=== PATIENT | male | born 1955 | race Caucasian/White ===

== ENCOUNTER 2019-01-08 15:31 | Inpatient (IN) | payer OTHER ==
[2019-01-08] MEDS: PIPER-TAZO 3.375 GM IV (PMX) 100 ML IVPB (16:41)
[2019-01-08] MEDS: morphine 4 MG/ML VIAL IV (16:41)
[2019-01-08 16:45] LABS: ADD MAN DIFF? NO
[2019-01-08 16:50] LABS: WHITE BLOOD COUNT 7.6 10^3/ul (4.8-10.8)
[2019-01-08 16:50] LABS: BASOPHILS % 0.5 % (0.0-2.0); EOSINOPHILS # 0.1 10^3/ul (0.0-0.5); EOSINOPHILS % 1.2 % (0.0-7.0); HEMATOCRIT 43.2 % (42.0-52.0); LYMPHOCYTES # 1.3 10^3/ul (0.8-2.9); MEAN CORPUSCULAR HGB CONC 32.4 g/dl (32.0-37.0); MEAN CORPUSCULAR VOLUME 89.4 fl (82.0-101.0); MEAN PLATELET VOLUME 11.6 fl (7.4-10.4); MONOCYTE # 0.6 10^3/ul (0.3-0.9); MONOCYTES % 7.6 % (0.0-11.0); NEUTROPHIL # 5.6 10^3/ul (1.6-7.5); NEUTROPHILS % 73.4 % (39.0-77.0); PLATELET COUNT 259 10^3/UL (140-415); RED BLOOD COUNT 4.83 10^6/ul (4.70-6.10); RED CELL DISTRIBUTION WIDTH 12.6 % (11.5-14.5)
[2019-01-08] MEDS: VANCOMYCIN 1 GM (PMX) 250 ML IVPB (17:08)
[2019-01-08 17:14] LABS: ALANINE AMINOTRANSFERASE 25 IU/L (13-69); ALBUMIN 4.2 g/dl (3.3-4.9); ALBUMIN/GLOBULIN RATIO 1.23; ALKALINE PHOSPHATASE 71 IU/L (42-121); ANION GAP 10 (5-13); ASPARTATE AMINO TRANSFERASE 22 IU/L (15-46); BILIRUBIN,INDIRECT 0.3 mg/dl (0-1.1); BILIRUBIN,TOTAL 0.3 mg/dl (0.2-1.3); BLOOD UREA NITROGEN 27 mg/dl (7-20); C-REACTIVE PROTEIN 1.1 mg/dl (0.0-0.9); CARBON DIOXIDE 26 mmol/L (21-31); CHLORIDE 103 mmol/L (97-110); CREATININE 0.92 mg/dl (0.61-1.24); Estimated GFR > 60 mL/min (>60); GLUCOSE 235 mg/dl (70-220); POTASSIUM 4.3 mmol/L (3.5-5.1); SODIUM 139 mmol/L (135-144); TOTAL PROTEIN 7.6 g/dl (6.1-8.1)
[2019-01-08 18:01] LABS: INR 0.84; PROTIME 11.6 Sec (11.9-14.9); PT RATIO 0.9
[2019-01-08 18:02] LABS: PARTIAL THROMBOPLASTIN TIME 33.1 Sec (23.0-35.0)
[2019-01-08 18:14] LABS: ERYTHROCYTE SEDIMENTATION RATE 15 mm/Hr (0-20)
[2019-01-08] MEDS ORDERED: DOCUSATE SODIUM 100 MG CAP PO (18:30)
[2019-01-08] MEDS ORDERED: ONDANSETRON 4 MG INJ IV ×2 (18:30→19:00)
[2019-01-08] MEDS ORDERED: VANCOMYCIN IV PER PHARMACY XX (18:30)
[2019-01-08] MEDS ORDERED: LORAZEPAM 2 MG INJ IV (18:30)
[2019-01-08] MEDS ORDERED: ACETAMINOPHEN 325 MG TAB PO ×2 (18:30→19:00)
[2019-01-08] MEDS ORDERED: NACL 0.9% 3 ML SYG IV (18:30)
[2019-01-08] MEDS ORDERED: ALBUTEROL/IPRATROPIUM (NEB) 3 ML AMP HHN (18:30)
[2019-01-08] MEDS ORDERED: NITROGLYCERIN (SL) 0.4 MG TAB SL (18:30)
[2019-01-08] MEDS ORDERED: MAGNESIUM HYDROXIDE 30ML CUP PO (18:30)
[2019-01-08] MEDS ORDERED: hydrALAzine 20 MG INJ IV (18:30)
[2019-01-08 19:32] LABS: FREE T4 (FREE THYROXINE) 1.16 ng/dl (0.78-2.44)
[2019-01-08] MEDS ORDERED: DEXTROSE 50% 50 ML SYRINGE IV ×2 (21:30)
[2019-01-08] MEDS ORDERED: GLUCOSE GEL 15 GRAM TUBE PO ×2 (21:30)
[2019-01-08] MEDS ORDERED: GLUCOSE GEL 15 GRAM TUBE BUCCAL (21:30)
[2019-01-08] MEDS ORDERED: GLUCAGON 1 MG INJ IM (21:30)
[2019-01-08 22:40] LABS: INR 0.85; PROTIME 11.7 Sec (11.9-14.9); PT RATIO 0.9
[2019-01-09] MEDS: morphine 2 MG INJ IV ×3 (00:45→20:51)
[2019-01-09] MEDS: PIPER-TAZO 3.375 GM IV (PMX) 100 ML IVPB ×3 (00:48→13:22)
[2019-01-09] MEDS: PREGABALIN 75 MG CAP PO ×4 (00:50→20:44)
[2019-01-09] MEDS: HEPARIN 5,000 UNIT/1 ML VIAL SC ×3 (00:50→20:46)
[2019-01-09] MEDS: SOD CHLORIDE 0.45% 1,000 ML IV ×3 (00:50→23:31)
[2019-01-09] MEDS: ATORVASTATIN 10 MG TAB PO ×2 (00:50→20:44)
[2019-01-09] MEDS: INSULIN ASPART [NOVOLOG] 3 ML PEN SC ×3 (01:00→08:44)
[2019-01-09] MEDS: ACCU-CHEK XX (01:01)
[2019-01-09] MEDS: VANCOMYCIN HCL 1.5 GM in SOD CHLORIDE 0.9% 250 ML IVPB ×2 (01:58→15:50)
[2019-01-09 05:40] LABS: ADD MAN DIFF? NO
[2019-01-09 05:48] LABS: BASOPHIL # 0.1 10^3/ul (0.0-0.1); BASOPHILS % 0.7 % (0.0-2.0); EOSINOPHILS # 0.1 10^3/ul (0.0-0.5); EOSINOPHILS % 1.5 % (0.0-7.0); HEMATOCRIT 39.6 % (42.0-52.0); HEMOGLOBIN 13.1 g/dl (14.0-18.0); LYMPHOCYTES # 1.7 10^3/ul (0.8-2.9); LYMPHOCYTES % 23.2 % (15.0-51.0); MEAN CORPUSCULAR HEMOGLOBIN 29.3 pg (29.0-33.0); MEAN CORPUSCULAR HGB CONC 33.1 g/dl (32.0-37.0); MEAN CORPUSCULAR VOLUME 88.6 fl (82.0-101.0); MEAN PLATELET VOLUME 11.5 fl (7.4-10.4); MONOCYTE # 0.7 10^3/ul (0.3-0.9); NEUTROPHIL # 4.6 10^3/ul (1.6-7.5); NEUTROPHILS % 64.3 % (39.0-77.0); PLATELET COUNT 253 10^3/UL (140-415); RED BLOOD COUNT 4.47 10^6/ul (4.70-6.10); RED CELL DISTRIBUTION WIDTH 12.4 % (11.5-14.5)
[2019-01-09 05:48] LABS: WHITE BLOOD COUNT 7.2 10^3/ul (4.8-10.8)
[2019-01-09] MEDS: LEVOTHYROXINE 25 MCG TAB PO (06:28)
[2019-01-09] MEDS: PANTOPRAZOLE (EC) 40 MG TAB PO (06:28)
[2019-01-09 06:45] LABS: ANION GAP 6 (5-13); BLOOD UREA NITROGEN 22 mg/dl (7-20); CALCIUM 9.1 mg/dl (8.4-10.2); CARBON DIOXIDE 26 mmol/L (21-31); CHLORIDE 107 mmol/L (97-110); CREATININE 0.81 mg/dl (0.61-1.24); Estimated GFR > 60 mL/min (>60); GLUCOSE 83 mg/dl (70-220); MAGNESIUM 1.9 mg/dl (1.7-2.5); PHOSPHORUS 2.8 mg/dl (2.5-4.9); POTASSIUM 3.9 mmol/L (3.5-5.1); SODIUM 139 mmol/L (135-144)
[2019-01-09 07:11] LABS: CHOL/HDL RATIO 2.8 RATIO; HDL CHOLESTEROL 41 mg/dl (30-78); LDL CHOLESTEROL,CALCULATED 63 mg/dl; TRIGLYCERIDES 53 mg/dl (0-149)
[2019-01-09 07:11] LABS: CHOLESTEROL 115 mg/dl (100-200)
[2019-01-09 07:31] LABS: HEMOGLOBIN A1C 6.9 % (0-5.9)
[2019-01-09] MEDS: COLLAGENASE 5 GM (UD JAR) TOP (08:31)
[2019-01-09] MEDS: LIDOCAINE 1% (MPF) 5 ML VIAL SC (11:05)
[2019-01-09] MEDS: Insulin NOVOLOG SS MILD Algorithm (SS with meals and bedtime) SC ×3 (13:00→20:46)
[2019-01-09] MEDS ORDERED: INSULIN ASPART [NOVOLOG] 3 ML PEN SC ×2 (13:00)
[2019-01-09] MEDS: CEFTRIAXONE 1 GM/50 ML (PMX) 50 ML IVPB (16:22)
[2019-01-10] MEDS: HYDROCODONE/APAP (5/325) TAB PO (00:43)
[2019-01-10] MEDS: SOD CHLORIDE 0.45% 1,000 ML IV ×2 (01:08→15:00)
[2019-01-10] MEDS: ACCU-CHEK XX (01:20)
[2019-01-10] MEDS: VANCOMYCIN HCL 1.5 GM in SOD CHLORIDE 0.9% 250 ML IVPB ×2 (01:20→13:49)
[2019-01-10 05:34] LABS: ADD MAN DIFF? NO
[2019-01-10 05:38] LABS: WHITE BLOOD COUNT 6.6 10^3/ul (4.8-10.8)
[2019-01-10 05:38] LABS: BASOPHIL # 0.1 10^3/ul (0.0-0.1); BASOPHILS % 0.9 % (0.0-2.0); EOSINOPHILS # 0.2 10^3/ul (0.0-0.5); EOSINOPHILS % 2.3 % (0.0-7.0); HEMATOCRIT 38.8 % (42.0-52.0); HEMOGLOBIN 12.9 g/dl (14.0-18.0); LYMPHOCYTES # 1.7 10^3/ul (0.8-2.9); LYMPHOCYTES % 25.9 % (15.0-51.0); MEAN CORPUSCULAR HEMOGLOBIN 29.6 pg (29.0-33.0); MEAN CORPUSCULAR HGB CONC 33.2 g/dl (32.0-37.0); MEAN PLATELET VOLUME 11.5 fl (7.4-10.4); MONOCYTE # 0.6 10^3/ul (0.3-0.9); MONOCYTES % 9.3 % (0.0-11.0); NEUTROPHILS % 61.3 % (39.0-77.0); PLATELET COUNT 253 10^3/UL (140-415); RED BLOOD COUNT 4.36 10^6/ul (4.70-6.10); RED CELL DISTRIBUTION WIDTH 12.7 % (11.5-14.5)
[2019-01-10 05:57] LABS: ANION GAP 6 (5-13); BLOOD UREA NITROGEN 16 mg/dl (7-20); CALCIUM 8.7 mg/dl (8.4-10.2); CARBON DIOXIDE 26 mmol/L (21-31); CHLORIDE 107 mmol/L (97-110); CREATININE 0.73 mg/dl (0.61-1.24); Estimated GFR > 60 mL/min (>60); GLUCOSE 192 mg/dl (70-220); SODIUM 139 mmol/L (135-144)
[2019-01-10] MEDS: LEVOTHYROXINE 25 MCG TAB PO (06:13)
[2019-01-10] MEDS: PANTOPRAZOLE (EC) 40 MG TAB PO (06:13)
[2019-01-10] MEDS: COLLAGENASE 5 GM (UD JAR) TOP ×2 (06:42→08:06)
[2019-01-10 07:46] LABS: ERYTHROCYTE SEDIMENTATION RATE 20 mm/Hr (0-20)
[2019-01-10] MEDS: PREGABALIN 75 MG CAP PO ×2 (08:00→13:49)
[2019-01-10] MEDS: HEPARIN 5,000 UNIT/1 ML VIAL SC (08:05)
[2019-01-10] MEDS: Insulin NOVOLOG SS MILD Algorithm (SS with meals and bedtime) SC ×3 (08:05→17:28)
[2019-01-10 12:54] LABS: VANCOMYCIN,TROUGH 13.3 ug/ml (10.0-20.0)
[2019-01-10] MEDS: CEFTRIAXONE 1 GM/50 ML (PMX) 50 ML IVPB (17:15)
== END 2019-01-10 18:30 | disposition home health service (06) | DRG 638 ==
LOC: E/R 15:31 → 2NE 22:40
DX: E11.621 Type 2 diabetes mellitus with foot ulcer (principal); M86.8X6 Other osteomyelitis, lower leg; R60.9 Edema, unspecified; Z79.82 Long term (current) use of aspirin; E03.9 Hypothyroidism, unspecified; E11.40 Type 2 diabetes mellitus with diabetic neuropathy, unspecified
CPT/HCPCS: 36415; 36569; 71045; 73620; 73718; 76937; 80048; 80053; 80061; 80202; 82962; 83036; 83735; 84100; 84439; 84443; 85025; 85610; 85651; 85730; 86140; 87070; 87081; 93926; 96365; 96366; 96375; 97162; 99285-25

== ENCOUNTER 2019-03-20 08:33 | Inpatient (IN) | payer OTHER ==
[2019-03-20 11:17] LABS: ADD MAN DIFF? NO
[2019-03-20 11:19] LABS: BASOPHILS % 0.3 % (0.0-2.0); EOSINOPHILS # 0.1 10^3/ul (0.0-0.5); EOSINOPHILS % 0.9 % (0.0-7.0); HEMATOCRIT 41.2 % (42.0-52.0); HEMOGLOBIN 13.5 g/dl (14.0-18.0); LYMPHOCYTES # 1.1 10^3/ul (0.8-2.9); LYMPHOCYTES % 11.9 % (15.0-51.0); MEAN CORPUSCULAR HEMOGLOBIN 28.8 pg (29.0-33.0); MEAN CORPUSCULAR HGB CONC 32.8 g/dl (32.0-37.0); MEAN PLATELET VOLUME 10.9 fl (7.4-10.4); MONOCYTE # 0.7 10^3/ul (0.3-0.9); MONOCYTES % 7.5 % (0.0-11.0); NEUTROPHIL # 7.2 10^3/ul (1.6-7.5); NEUTROPHILS % 79.2 % (39.0-77.0); PLATELET COUNT 226 10^3/UL (140-415); RED BLOOD COUNT 4.68 10^6/ul (4.70-6.10); RED CELL DISTRIBUTION WIDTH 12.7 % (11.5-14.5)
[2019-03-20 11:19] LABS: WHITE BLOOD COUNT 9.1 10^3/ul (4.8-10.8)
[2019-03-20] MEDS: morphine 4 MG/ML VIAL IV (11:19)
[2019-03-20] MEDS: CEFTRIAXONE 1 GM/50 ML (PMX) 50 ML IVPB (11:19)
[2019-03-20] MEDS: SOD CHLORIDE 0.9% 1,000 ML IV (11:19)
[2019-03-20] MEDS: ONDANSETRON 4 MG INJ IV (11:19)
[2019-03-20 11:40] LABS: ALANINE AMINOTRANSFERASE 21 IU/L (13-69); ALBUMIN 4.6 g/dl (3.3-4.9); ALBUMIN/GLOBULIN RATIO 1.53; ALKALINE PHOSPHATASE 66 IU/L (42-121); ANION GAP 10 (5-13); ASPARTATE AMINO TRANSFERASE 19 IU/L (15-46); BILIRUBIN,INDIRECT 0.4 mg/dl (0-1.1); BILIRUBIN,TOTAL 0.4 mg/dl (0.2-1.3); BLOOD UREA NITROGEN 23 mg/dl (7-20); CALCIUM 9.8 mg/dl (8.4-10.2); CARBON DIOXIDE 29 mmol/L (21-31); CHLORIDE 100 mmol/L (97-110); CREATININE 1.08 mg/dl (0.61-1.24); Estimated GFR > 60 mL/min (>60); GLUCOSE 109 mg/dl (70-220); POTASSIUM 4.7 mmol/L (3.5-5.1); SODIUM 139 mmol/L (135-144); TOTAL PROTEIN 7.6 g/dl (6.1-8.1)
[2019-03-20 11:44] LABS: C-REACTIVE PROTEIN 2.6 mg/dl (0.0-0.9)
[2019-03-20 12:30] LABS: ERYTHROCYTE SEDIMENTATION RATE 33 mm/Hr (0-20)
[2019-03-20] MEDS ORDERED: ACETAMINOPHEN 325 MG TAB PO (13:30)
[2019-03-20] MEDS ORDERED: DOCUSATE SODIUM 100 MG CAP PO (13:30)
[2019-03-20] MEDS: AMLODIPINE 5 MG TAB PO (13:30)
[2019-03-20] MEDS ORDERED: ONDANSETRON 4 MG INJ IV ×2 (13:30)
[2019-03-20] MEDS ORDERED: DEXTROSE 50% 50 ML SYRINGE IV ×2 (14:30)
[2019-03-20] MEDS ORDERED: GLUCOSE GEL 15 GRAM TUBE PO ×2 (14:30)
[2019-03-20] MEDS ORDERED: GLUCAGON 1 MG INJ IM (14:30)
[2019-03-20] MEDS ORDERED: GLUCOSE GEL 15 GRAM TUBE BUCCAL (14:30)
[2019-03-20 14:58] LABS: HEMOGLOBIN A1C 6.7 % (0-5.9)
[2019-03-20] MEDS ORDERED: VANCOMYCIN IV PER PHARMACY XX (15:30)
[2019-03-20] MEDS: VANCOMYCIN HCL 2 GM in SOD CHLORIDE 0.9% 500 ML IVPB (17:22)
[2019-03-20] MEDS: HYDROCODONE/APAP (5/325) TAB PO (17:22)
[2019-03-20] MEDS: INSULIN ASPART [NOVOLOG] 3 ML PEN SC ×3 (18:00→22:33)
[2019-03-20] MEDS ORDERED: NON-FORMULARY/PATIENT OWN MED (Pravastatin Sodium* 20 MG) PO (21:00)
[2019-03-20] MEDS: ATORVASTATIN 10 MG TAB PO (22:32)
[2019-03-20] MEDS: PREGABALIN 75 MG CAP PO (22:32)
[2019-03-20] MEDS: FAMOTIDINE 20 MG INJ IV (22:33)
[2019-03-20] MEDS: HEPARIN 5,000 UNIT/1 ML VIAL SC (22:48)
[2019-03-20] MEDS: INSULIN GLARGINE [LANTus] (100 UNITS/ML) SYG SC (22:49)
[2019-03-21] MEDS: morphine 2 MG INJ IV ×3 (01:19→11:58)
[2019-03-21] MEDS: ACCU-CHEK XX (02:00)
[2019-03-21 05:27] LABS: ADD MAN DIFF? NO
[2019-03-21] MEDS: VANCOMYCIN 1.25 GM/NS 250 ML 250 ML IVPB ×2 (05:28→17:00)
[2019-03-21 05:36] LABS: WHITE BLOOD COUNT 6.4 10^3/ul (4.8-10.8)
[2019-03-21 05:36] LABS: BASOPHIL # 0.1 10^3/ul (0.0-0.1); BASOPHILS % 0.9 % (0.0-2.0); EOSINOPHILS # 0.1 10^3/ul (0.0-0.5); EOSINOPHILS % 1.9 % (0.0-7.0); HEMATOCRIT 36.3 % (42.0-52.0); HEMOGLOBIN 12.1 g/dl (14.0-18.0); LYMPHOCYTES # 0.9 10^3/ul (0.8-2.9); LYMPHOCYTES % 14.1 % (15.0-51.0); MEAN CORPUSCULAR HEMOGLOBIN 29.4 pg (29.0-33.0); MEAN CORPUSCULAR HGB CONC 33.3 g/dl (32.0-37.0); MEAN CORPUSCULAR VOLUME 88.1 fl (82.0-101.0); MEAN PLATELET VOLUME 11.1 fl (7.4-10.4); MONOCYTE # 0.8 10^3/ul (0.3-0.9); MONOCYTES % 12.4 % (0.0-11.0); NEUTROPHIL # 4.5 10^3/ul (1.6-7.5); NEUTROPHILS % 70.5 % (39.0-77.0); PLATELET COUNT 197 10^3/UL (140-415); RED BLOOD COUNT 4.12 10^6/ul (4.70-6.10); RED CELL DISTRIBUTION WIDTH 12.7 % (11.5-14.5)
[2019-03-21 05:52] LABS: INR 0.95; PROTIME 12.8 Sec (11.9-14.9)
[2019-03-21 05:53] LABS: PARTIAL THROMBOPLASTIN TIME 31.9 Sec (23.0-35.0)
[2019-03-21 06:40] LABS: T3 UPTAKE 35.3 % (23.5-40.5); T4 (THYROXINE) 6.8 ug/dl (5.5-11.0)
[2019-03-21 06:41] LABS: ALANINE AMINOTRANSFERASE 26 IU/L (13-69); ALBUMIN 3.7 g/dl (3.3-4.9); ALBUMIN/GLOBULIN RATIO 1.42; ALKALINE PHOSPHATASE 58 IU/L (42-121); ANION GAP 9 (5-13); ASPARTATE AMINO TRANSFERASE 15 IU/L (15-46); BILIRUBIN,INDIRECT 0.6 mg/dl (0-1.1); BILIRUBIN,TOTAL 0.6 mg/dl (0.2-1.3); BLOOD UREA NITROGEN 22 mg/dl (7-20); CARBON DIOXIDE 29 mmol/L (21-31); CHLORIDE 103 mmol/L (97-110); CHOL/HDL RATIO 3.2 RATIO; CHOLESTEROL 118 mg/dl (100-200); Estimated GFR > 60 mL/min (>60); GLUCOSE 126 mg/dl (70-220); HDL CHOLESTEROL 36 mg/dl (30-78); LDL CHOLESTEROL,CALCULATED 68 mg/dl; MAGNESIUM 1.7 mg/dl (1.7-2.5); PHOSPHORUS 3.8 mg/dl (2.5-4.9); POTASSIUM 4.4 mmol/L (3.5-5.1); SODIUM 141 mmol/L (135-144); TOTAL PROTEIN 6.3 g/dl (6.1-8.1); TRIGLYCERIDES 68 mg/dl (0-149)
[2019-03-21] MEDS: LEVOTHYROXINE 25 MCG TAB PO (06:57)
[2019-03-21 07:51] LABS: HEMOGLOBIN A1C 6.6 % (0-5.9)
[2019-03-21] MEDS: INSULIN ASPART [NOVOLOG] 3 ML PEN SC ×7 (08:00→21:00)
[2019-03-21] MEDS: ASPIRIN (EC) 81 MG TAB PO (08:29)
[2019-03-21] MEDS: AMLODIPINE 5 MG TAB PO (08:29)
[2019-03-21] MEDS: PREGABALIN 75 MG CAP PO ×3 (08:29→21:24)
[2019-03-21] MEDS: FAMOTIDINE 20 MG INJ IV ×2 (08:34→21:24)
[2019-03-21] MEDS: HEPARIN 5,000 UNIT/1 ML VIAL SC ×2 (08:36→21:33)
[2019-03-21] MEDS: CEFTRIAXONE 1 GM/50 ML (PMX) 50 ML IVPB (16:25)
[2019-03-21] MEDS: POLYMYXIN/BACITRACIN 1L IRRIG IRR ×2 (18:11→18:48)
[2019-03-21] MEDS ORDERED: FENTAnyl 50 MCG/ML VIAL (18:30)
[2019-03-21] MEDS ORDERED: MIDAZOLAM 1 MG/ML 2 ML INJ (18:30)
[2019-03-21] MEDS: BUPIVACAINE 0.5% (SDV) 30 ML INJ (18:36)
[2019-03-21] MEDS ORDERED: PROPOFOL 20 ML (18:43)
[2019-03-21] MEDS: VANCOMYCIN 1 GM INJ (18:48)
[2019-03-21] MEDS ORDERED: METOCLOPRAMIDE 10 MG INJ (18:55)
[2019-03-21] MEDS ORDERED: ONDANSETRON 4 MG INJ (18:55)
[2019-03-21] MEDS ORDERED: EPHEDrine 25 MG/5 ML SYG IV (19:30)
[2019-03-21] MEDS ORDERED: LABETALOL HCL 20MG INJ IV (19:30)
[2019-03-21] MEDS ORDERED: ONDANSETRON 4 MG INJ IV (19:30)
[2019-03-21] MEDS ORDERED: HYDROmorphONE 1 MG/5 ML IV SYRINGE IV ×2 (19:30)
[2019-03-21] MEDS ORDERED: OXYCODONE/ACETAMINOPHEN (5/325) TAB PO (19:30)
[2019-03-21] MEDS ORDERED: FENTAnyl 50 MCG/ML VIAL IV ×2 (19:30)
[2019-03-21] MEDS: ATORVASTATIN 10 MG TAB PO (21:24)
[2019-03-21] MEDS: INSULIN GLARGINE [LANTus] (100 UNITS/ML) SYG SC (21:33)
[2019-03-22] MEDS: ACCU-CHEK XX (02:00)
[2019-03-22 05:00] LABS: VANCOMYCIN,TROUGH 6.4 ug/ml (10.0-20.0)
[2019-03-22] MEDS: VANCOMYCIN 1.25 GM/NS 250 ML 250 ML IVPB ×3 (05:37→20:22)
[2019-03-22] MEDS: LEVOTHYROXINE 25 MCG TAB PO (06:01)
[2019-03-22] MEDS: INSULIN ASPART [NOVOLOG] 3 ML PEN SC ×8 (08:00→20:28)
[2019-03-22] MEDS: AMLODIPINE 5 MG TAB PO (08:24)
[2019-03-22] MEDS: FAMOTIDINE 20 MG INJ IV ×2 (08:24→20:23)
[2019-03-22] MEDS: PREGABALIN 75 MG CAP PO ×3 (08:24→20:23)
[2019-03-22] MEDS: ASPIRIN (EC) 81 MG TAB PO (08:24)
[2019-03-22] MEDS: HEPARIN 5,000 UNIT/1 ML VIAL SC ×2 (08:28→20:28)
[2019-03-22] MEDS: HYDROCODONE/APAP (5/325) TAB PO ×2 (08:33→18:15)
[2019-03-22] MEDS: CEFTRIAXONE 1 GM/50 ML (PMX) 50 ML IVPB (15:34)
[2019-03-22] MEDS: ATORVASTATIN 10 MG TAB PO (20:23)
[2019-03-22] MEDS: INSULIN GLARGINE [LANTus] (100 UNITS/ML) SYG SC (20:26)
[2019-03-23] MEDS: ACCU-CHEK XX (01:46)
[2019-03-23 05:28] LABS: ADD MAN DIFF? NO
[2019-03-23 05:36] LABS: WHITE BLOOD COUNT 6.2 10^3/ul (4.8-10.8)
[2019-03-23 05:36] LABS: BASOPHIL # 0.1 10^3/ul (0.0-0.1); BASOPHILS % 0.8 % (0.0-2.0); EOSINOPHILS # 0.2 10^3/ul (0.0-0.5); EOSINOPHILS % 3.4 % (0.0-7.0); HEMATOCRIT 36.7 % (42.0-52.0); HEMOGLOBIN 11.8 g/dl (14.0-18.0); LYMPHOCYTES # 1.1 10^3/ul (0.8-2.9); LYMPHOCYTES % 17.4 % (15.0-51.0); MEAN CORPUSCULAR HEMOGLOBIN 28.2 pg (29.0-33.0); MEAN CORPUSCULAR HGB CONC 32.2 g/dl (32.0-37.0); MEAN CORPUSCULAR VOLUME 87.6 fl (82.0-101.0); MEAN PLATELET VOLUME 11.1 fl (7.4-10.4); MONOCYTES % 15.7 % (0.0-11.0); NEUTROPHIL # 3.8 10^3/ul (1.6-7.5); NEUTROPHILS % 62.4 % (39.0-77.0); PLATELET COUNT 218 10^3/UL (140-415); RED BLOOD COUNT 4.19 10^6/ul (4.70-6.10); RED CELL DISTRIBUTION WIDTH 12.6 % (11.5-14.5)
[2019-03-23 06:32] LABS: ANION GAP 8 (5-13); BLOOD UREA NITROGEN 18 mg/dl (7-20); CALCIUM 8.8 mg/dl (8.4-10.2); CARBON DIOXIDE 27 mmol/L (21-31); CHLORIDE 103 mmol/L (97-110); Estimated GFR > 60 mL/min (>60); GLUCOSE 131 mg/dl (70-220); POTASSIUM 3.9 mmol/L (3.5-5.1); SODIUM 138 mmol/L (135-144)
[2019-03-23 06:32] LABS: VANCOMYCIN,TROUGH 16.7 ug/ml (10.0-20.0)
[2019-03-23] MEDS: LEVOTHYROXINE 25 MCG TAB PO (07:01)
[2019-03-23] MEDS: INSULIN ASPART [NOVOLOG] 3 ML PEN SC ×6 (07:57→21:00)
[2019-03-23] MEDS: PREGABALIN 75 MG CAP PO ×3 (08:01→20:56)
[2019-03-23] MEDS: ASPIRIN (EC) 81 MG TAB PO (08:01)
[2019-03-23] MEDS: FAMOTIDINE 20 MG INJ IV ×2 (08:01→20:56)
[2019-03-23] MEDS: HEPARIN 5,000 UNIT/1 ML VIAL SC ×2 (08:05→21:04)
[2019-03-23] MEDS: HYDROCODONE/APAP (5/325) TAB PO (08:10)
[2019-03-23] MEDS: AMLODIPINE 5 MG TAB PO (08:10)
[2019-03-23] MEDS: VANCOMYCIN 1.25 GM/NS 250 ML 250 ML IVPB ×3 (08:11→20:58)
[2019-03-23] MEDS: NITROGLYCERIN 0.2 MG/HR PATCH TRANSDERM (09:00)
[2019-03-23] MEDS ORDERED: NITROGLYCERIN 0.4 MG/HR PATCH TRANSDERM (09:00)
[2019-03-23] MEDS: ACETAMINOPHEN 325 MG TAB PO (14:29)
[2019-03-23] MEDS: CEFTRIAXONE 1 GM/50 ML (PMX) 50 ML IVPB (16:00)
[2019-03-23] MEDS: ATORVASTATIN 10 MG TAB PO (20:56)
[2019-03-23] MEDS: INSULIN GLARGINE [LANTus] (100 UNITS/ML) SYG SC (22:28)
[2019-03-24] MEDS: ACCU-CHEK XX (02:00)
[2019-03-24] MEDS: VANCOMYCIN 1.25 GM/NS 250 ML 250 ML IVPB ×2 (05:20→13:44)
[2019-03-24 06:19] LABS: ADD MAN DIFF? NO
[2019-03-24 06:25] LABS: HEMATOCRIT 39.6 % (42.0-52.0); HEMOGLOBIN 12.9 g/dl (14.0-18.0); LYMPHOCYTES % 17.4 % (15.0-51.0); MEAN CORPUSCULAR HEMOGLOBIN 28.9 pg (29.0-33.0); MEAN CORPUSCULAR HGB CONC 32.6 g/dl (32.0-37.0); MEAN CORPUSCULAR VOLUME 88.8 fl (82.0-101.0); MEAN PLATELET VOLUME 11.1 fl (7.4-10.4); MONOCYTES % 12.5 % (0.0-11.0); NEUTROPHILS % 66.9 % (39.0-77.0); PLATELET COUNT 260 10^3/UL (140-415); RED BLOOD COUNT 4.46 10^6/ul (4.70-6.10); RED CELL DISTRIBUTION WIDTH 12.5 % (11.5-14.5)
[2019-03-24 06:25] LABS: WHITE BLOOD COUNT 6.8 10^3/ul (4.8-10.8)
[2019-03-24 06:26] LABS: BASOPHIL # 0.1 10^3/ul (0.0-0.1); BASOPHILS % 0.7 % (0.0-2.0); EOSINOPHILS # 0.2 10^3/ul (0.0-0.5); EOSINOPHILS % 2.4 % (0.0-7.0); LYMPHOCYTES # 1.2 10^3/ul (0.8-2.9); MONOCYTE # 0.9 10^3/ul (0.3-0.9); NEUTROPHIL # 4.5 10^3/ul (1.6-7.5)
[2019-03-24] MEDS: LEVOTHYROXINE 25 MCG TAB PO (06:39)
[2019-03-24 07:02] LABS: ANION GAP 11 (5-13); BLOOD UREA NITROGEN 18 mg/dl (7-20); CARBON DIOXIDE 26 mmol/L (21-31); CHLORIDE 101 mmol/L (97-110); CREATININE 1.12 mg/dl (0.61-1.24); Estimated GFR > 60 mL/min (>60); GLUCOSE 191 mg/dl (70-220); SODIUM 138 mmol/L (135-144)
[2019-03-24] MEDS: ASPIRIN (EC) 81 MG TAB PO (08:18)
[2019-03-24] MEDS: PREGABALIN 75 MG CAP PO ×3 (08:18→20:20)
[2019-03-24] MEDS: FAMOTIDINE 20 MG INJ IV ×2 (08:18→20:20)
[2019-03-24] MEDS: AMLODIPINE 5 MG TAB PO (08:18)
[2019-03-24] MEDS: INSULIN ASPART [NOVOLOG] 3 ML PEN SC ×7 (08:22→20:56)
[2019-03-24] MEDS: HEPARIN 5,000 UNIT/1 ML VIAL SC ×2 (08:23→20:58)
[2019-03-24] MEDS: NITROGLYCERIN 0.2 MG/HR PATCH TRANSDERM (10:26)
[2019-03-24 12:47] LABS: BLOOD UREA NITROGEN 16 mg/dl (7-20)
[2019-03-24 12:47] LABS: CREATININE 1.01 mg/dl (0.61-1.24)
[2019-03-24 12:51] LABS: VANCOMYCIN,TROUGH 17.3 ug/ml (10.0-20.0)
[2019-03-24] MEDS: ATORVASTATIN 10 MG TAB PO (20:20)
[2019-03-24] MEDS: INSULIN GLARGINE [LANTus] (100 UNITS/ML) SYG SC (20:22)
[2019-03-24] MEDS: CEFAZOLIN 2 GM/50 ML (PMX) 50 ML IVPB (22:13)
[2019-03-25] MEDS: ACCU-CHEK XX (01:25)
[2019-03-25 05:58] LABS: ADD MAN DIFF? NO
[2019-03-25] MEDS: CEFAZOLIN 2 GM/50 ML (PMX) 50 ML IVPB ×3 (06:03→21:32)
[2019-03-25] MEDS: LEVOTHYROXINE 25 MCG TAB PO (06:03)
[2019-03-25 06:09] LABS: WHITE BLOOD COUNT 7.1 10^3/ul (4.8-10.8)
[2019-03-25 06:09] LABS: BASOPHIL # 0.1 10^3/ul (0.0-0.1); EOSINOPHILS # 0.3 10^3/ul (0.0-0.5); EOSINOPHILS % 3.5 % (0.0-7.0); HEMATOCRIT 38.8 % (42.0-52.0); HEMOGLOBIN 12.9 g/dl (14.0-18.0); LYMPHOCYTES # 1.3 10^3/ul (0.8-2.9); LYMPHOCYTES % 18.6 % (15.0-51.0); MEAN CORPUSCULAR HEMOGLOBIN 28.9 pg (29.0-33.0); MEAN CORPUSCULAR HGB CONC 33.2 g/dl (32.0-37.0); MONOCYTE # 0.9 10^3/ul (0.3-0.9); MONOCYTES % 12.2 % (0.0-11.0); NEUTROPHIL # 4.6 10^3/ul (1.6-7.5); NEUTROPHILS % 64.4 % (39.0-77.0); PLATELET COUNT 263 10^3/UL (140-415); RED BLOOD COUNT 4.46 10^6/ul (4.70-6.10); RED CELL DISTRIBUTION WIDTH 12.4 % (11.5-14.5)
[2019-03-25 06:42] LABS: ANION GAP 7 (5-13); BLOOD UREA NITROGEN 20 mg/dl (7-20); CALCIUM 9.1 mg/dl (8.4-10.2); CARBON DIOXIDE 28 mmol/L (21-31); CHLORIDE 105 mmol/L (97-110); GLUCOSE 163 mg/dl (70-220); POTASSIUM 4.4 mmol/L (3.5-5.1); SODIUM 140 mmol/L (135-144)
[2019-03-25 06:58] LABS: CREATININE 1.06 mg/dl (0.61-1.24); Estimated GFR > 60 mL/min (>60)
[2019-03-25] MEDS: INSULIN ASPART [NOVOLOG] 3 ML PEN SC ×7 (08:00→20:31)
[2019-03-25] MEDS: AMLODIPINE 5 MG TAB PO (08:16)
[2019-03-25] MEDS: PREGABALIN 75 MG CAP PO ×3 (08:16→20:28)
[2019-03-25] MEDS: ASPIRIN (EC) 81 MG TAB PO (08:16)
[2019-03-25] MEDS: HEPARIN 5,000 UNIT/1 ML VIAL SC ×2 (08:17→20:32)
[2019-03-25] MEDS: FAMOTIDINE 20 MG INJ IV (08:23)
[2019-03-25] MEDS ORDERED: MIDAZOLAM 1 MG/ML 2 ML INJ (08:36)
[2019-03-25] MEDS ORDERED: FENTAnyl 50 MCG/ML VIAL (08:36)
[2019-03-25] MEDS ORDERED: LIDOCAINE 1% (MDV) 20 ML INJ (08:36)
[2019-03-25] MEDS ORDERED: HEPARIN 1000 UNITS/NS (A-LINE) 1,000 ML (08:36)
[2019-03-25] MEDS ORDERED: IODIXANOL LOCM 100 ML BTL (09:41)
[2019-03-25] MEDS ORDERED: SOD CHLORIDE 0.9% 500 ML (09:41)
[2019-03-25] MEDS: SOD CHLORIDE 0.9% 1,000 ML IV (10:22)
[2019-03-25] MEDS: NITROGLYCERIN 0.2 MG/HR PATCH TRANSDERM (10:50)
[2019-03-25] MEDS: FAMOTIDINE 20 MG TAB PO (20:28)
[2019-03-25] MEDS: ATORVASTATIN 10 MG TAB PO (20:28)
[2019-03-25] MEDS: INSULIN GLARGINE [LANTus] (100 UNITS/ML) SYG SC (20:32)
[2019-03-26] MEDS: ACETAMINOPHEN 325 MG TAB PO (01:12)
[2019-03-26] MEDS: ACCU-CHEK XX (02:00)
[2019-03-26 05:39] LABS: ADD MAN DIFF? NO
[2019-03-26 05:44] LABS: WHITE BLOOD COUNT 6.6 10^3/ul (4.8-10.8)
[2019-03-26 05:44] LABS: BASOPHIL # 0.1 10^3/ul (0.0-0.1); BASOPHILS % 0.9 % (0.0-2.0); EOSINOPHILS # 0.3 10^3/ul (0.0-0.5); EOSINOPHILS % 4.1 % (0.0-7.0); HEMATOCRIT 35.3 % (42.0-52.0); HEMOGLOBIN 11.7 g/dl (14.0-18.0); LYMPHOCYTES # 1.5 10^3/ul (0.8-2.9); LYMPHOCYTES % 22.7 % (15.0-51.0); MEAN CORPUSCULAR HEMOGLOBIN 29.1 pg (29.0-33.0); MEAN CORPUSCULAR HGB CONC 33.1 g/dl (32.0-37.0); MEAN CORPUSCULAR VOLUME 87.8 fl (82.0-101.0); MEAN PLATELET VOLUME 10.7 fl (7.4-10.4); MONOCYTE # 0.7 10^3/ul (0.3-0.9); PLATELET COUNT 247 10^3/UL (140-415); RED BLOOD COUNT 4.02 10^6/ul (4.70-6.10); RED CELL DISTRIBUTION WIDTH 12.5 % (11.5-14.5)
[2019-03-26] MEDS: LEVOTHYROXINE 25 MCG TAB PO (06:07)
[2019-03-26] MEDS: CEFAZOLIN 2 GM/50 ML (PMX) 50 ML IVPB ×3 (06:07→22:19)
[2019-03-26 06:12] LABS: MAGNESIUM 1.9 mg/dl (1.7-2.5)
[2019-03-26 06:12] LABS: PHOSPHORUS 4.1 mg/dl (2.5-4.9)
[2019-03-26 06:14] LABS: ANION GAP 6 (5-13); BLOOD UREA NITROGEN 23 mg/dl (7-20); CALCIUM 8.7 mg/dl (8.4-10.2); CARBON DIOXIDE 28 mmol/L (21-31); CHLORIDE 105 mmol/L (97-110); Estimated GFR > 60 mL/min (>60); GLUCOSE 151 mg/dl (70-220); POTASSIUM 3.9 mmol/L (3.5-5.1); SODIUM 139 mmol/L (135-144)
[2019-03-26] MEDS: INSULIN ASPART [NOVOLOG] 3 ML PEN SC ×7 (08:00→21:00)
[2019-03-26] MEDS: FAMOTIDINE 20 MG TAB PO ×2 (08:31→20:20)
[2019-03-26] MEDS: ASPIRIN (EC) 81 MG TAB PO (08:31)
[2019-03-26] MEDS: AMLODIPINE 5 MG TAB PO (08:31)
[2019-03-26] MEDS: PREGABALIN 75 MG CAP PO ×3 (08:31→20:19)
[2019-03-26] MEDS: HEPARIN 5,000 UNIT/1 ML VIAL SC ×2 (08:37→20:22)
[2019-03-26] MEDS: NITROGLYCERIN 0.2 MG/HR PATCH TRANSDERM (09:00)
[2019-03-26] MEDS: HYDROCODONE/APAP (5/325) TAB PO (10:00)
[2019-03-26] MEDS: NACL 0.9% 3 ML SYG IV (17:39)
[2019-03-26] MEDS: ATORVASTATIN 10 MG TAB PO (20:19)
[2019-03-26] MEDS: INSULIN GLARGINE [LANTus] (100 UNITS/ML) SYG SC (20:22)
[2019-03-27] MEDS: ACCU-CHEK XX (01:48)
[2019-03-27] MEDS: LEVOTHYROXINE 25 MCG TAB PO (06:17)
[2019-03-27] MEDS: CEFAZOLIN 2 GM/50 ML (PMX) 50 ML IVPB ×3 (06:17→22:13)
[2019-03-27 07:20] LABS: ADD MAN DIFF? NO
[2019-03-27 07:24] LABS: WHITE BLOOD COUNT 5.9 10^3/ul (4.8-10.8)
[2019-03-27 07:24] LABS: BASOPHIL # 0.1 10^3/ul (0.0-0.1); EOSINOPHILS # 0.3 10^3/ul (0.0-0.5); EOSINOPHILS % 4.6 % (0.0-7.0); HEMATOCRIT 37.7 % (42.0-52.0); HEMOGLOBIN 12.3 g/dl (14.0-18.0); LYMPHOCYTES # 1.3 10^3/ul (0.8-2.9); LYMPHOCYTES % 21.9 % (15.0-51.0); MEAN CORPUSCULAR HEMOGLOBIN 28.9 pg (29.0-33.0); MEAN CORPUSCULAR HGB CONC 32.6 g/dl (32.0-37.0); MEAN CORPUSCULAR VOLUME 88.5 fl (82.0-101.0); MEAN PLATELET VOLUME 10.8 fl (7.4-10.4); MONOCYTE # 0.5 10^3/ul (0.3-0.9); MONOCYTES % 8.5 % (0.0-11.0); NEUTROPHIL # 3.8 10^3/ul (1.6-7.5); NEUTROPHILS % 63.8 % (39.0-77.0); PLATELET COUNT 270 10^3/UL (140-415); RED BLOOD COUNT 4.26 10^6/ul (4.70-6.10); RED CELL DISTRIBUTION WIDTH 12.7 % (11.5-14.5)
[2019-03-27 07:53] LABS: ANION GAP 5 (5-13); BLOOD UREA NITROGEN 22 mg/dl (7-20); CALCIUM 9.2 mg/dl (8.4-10.2); CARBON DIOXIDE 30 mmol/L (21-31); CHLORIDE 104 mmol/L (97-110); Estimated GFR > 60 mL/min (>60); GLUCOSE 141 mg/dl (70-220); POTASSIUM 4.2 mmol/L (3.5-5.1); SODIUM 139 mmol/L (135-144)
[2019-03-27 07:58] LABS: MAGNESIUM 1.9 mg/dl (1.7-2.5)
[2019-03-27 07:58] LABS: PHOSPHORUS 3.6 mg/dl (2.5-4.9)
[2019-03-27] MEDS: INSULIN ASPART [NOVOLOG] 3 ML PEN SC ×7 (08:00→21:00)
[2019-03-27] MEDS: ASPIRIN (EC) 81 MG TAB PO (08:55)
[2019-03-27] MEDS: PREGABALIN 75 MG CAP PO ×3 (08:55→21:31)
[2019-03-27] MEDS: FAMOTIDINE 20 MG TAB PO ×2 (08:55→21:31)
[2019-03-27] MEDS: AMLODIPINE 5 MG TAB PO (08:56)
[2019-03-27] MEDS: HEPARIN 5,000 UNIT/1 ML VIAL SC ×2 (09:09→21:36)
[2019-03-27] MEDS: HYDROCODONE/APAP (5/325) TAB PO (14:57)
[2019-03-27] MEDS ORDERED: LOSARTAN 25 MG TAB PO (17:00)
[2019-03-27] MEDS: LOSARTAN 50 MG TAB PO (17:59)
[2019-03-27] MEDS: ATORVASTATIN 40 MG TAB PO (21:31)
[2019-03-27] MEDS: INSULIN GLARGINE [LANTus] (100 UNITS/ML) SYG SC (21:36)
[2019-03-28] MEDS: ACCU-CHEK XX (01:57)
[2019-03-28 06:12] LABS: ADD MAN DIFF? NO
[2019-03-28] MEDS: LEVOTHYROXINE 25 MCG TAB PO (06:16)
[2019-03-28] MEDS: CEFAZOLIN 2 GM/50 ML (PMX) 50 ML IVPB ×3 (06:17→21:34)
[2019-03-28 06:19] LABS: BASOPHIL # 0.1 10^3/ul (0.0-0.1); BASOPHILS % 1.1 % (0.0-2.0); EOSINOPHILS # 0.2 10^3/ul (0.0-0.5); EOSINOPHILS % 4.2 % (0.0-7.0); HEMATOCRIT 35.5 % (42.0-52.0); HEMOGLOBIN 11.6 g/dl (14.0-18.0); LYMPHOCYTES # 1.5 10^3/ul (0.8-2.9); LYMPHOCYTES % 25.6 % (15.0-51.0); MEAN CORPUSCULAR HEMOGLOBIN 28.5 pg (29.0-33.0); MEAN CORPUSCULAR HGB CONC 32.7 g/dl (32.0-37.0); MEAN CORPUSCULAR VOLUME 87.2 fl (82.0-101.0); MEAN PLATELET VOLUME 10.7 fl (7.4-10.4); MONOCYTE # 0.6 10^3/ul (0.3-0.9); MONOCYTES % 10.5 % (0.0-11.0); NEUTROPHIL # 3.3 10^3/ul (1.6-7.5); NEUTROPHILS % 58.2 % (39.0-77.0); PLATELET COUNT 276 10^3/UL (140-415); RED BLOOD COUNT 4.07 10^6/ul (4.70-6.10); RED CELL DISTRIBUTION WIDTH 12.8 % (11.5-14.5)
[2019-03-28 06:19] LABS: WHITE BLOOD COUNT 5.7 10^3/ul (4.8-10.8)
[2019-03-28 06:39] LABS: ANION GAP 6 (5-13); BLOOD UREA NITROGEN 21 mg/dl (7-20); CALCIUM 9.4 mg/dl (8.4-10.2); CARBON DIOXIDE 31 mmol/L (21-31); CHLORIDE 102 mmol/L (97-110); CREATININE 0.99 mg/dl (0.61-1.24); Estimated GFR > 60 mL/min (>60); GLUCOSE 135 mg/dl (70-220); POTASSIUM 4.2 mmol/L (3.5-5.1); SODIUM 139 mmol/L (135-144)
[2019-03-28 06:45] LABS: MAGNESIUM 1.9 mg/dl (1.7-2.5)
[2019-03-28 06:45] LABS: PHOSPHORUS 4.1 mg/dl (2.5-4.9)
[2019-03-28] MEDS: INSULIN ASPART [NOVOLOG] 3 ML PEN SC ×7 (08:00→20:41)
[2019-03-28] MEDS: LOSARTAN 50 MG TAB PO (08:44)
[2019-03-28] MEDS: FAMOTIDINE 20 MG TAB PO ×2 (08:44→20:39)
[2019-03-28] MEDS: PREGABALIN 75 MG CAP PO ×3 (08:44→20:38)
[2019-03-28] MEDS: ASPIRIN (EC) 81 MG TAB PO (08:44)
[2019-03-28] MEDS: HEPARIN 5,000 UNIT/1 ML VIAL SC ×2 (08:46→20:42)
[2019-03-28] MEDS: ATORVASTATIN 40 MG TAB PO (20:39)
[2019-03-28] MEDS: INSULIN GLARGINE [LANTus] (100 UNITS/ML) SYG SC (20:42)
[2019-03-29] MEDS: ACCU-CHEK XX (01:37)
[2019-03-29] MEDS: CEFAZOLIN 2 GM/50 ML (PMX) 50 ML IVPB ×3 (05:35→21:14)
[2019-03-29] MEDS: morphine 2 MG INJ IV (05:35)
[2019-03-29] MEDS: LEVOTHYROXINE 25 MCG TAB PO (06:10)
[2019-03-29] MEDS: INSULIN ASPART [NOVOLOG] 3 ML PEN SC ×7 (08:00→21:00)
[2019-03-29] MEDS: LOSARTAN 50 MG TAB PO (08:16)
[2019-03-29] MEDS: HEPARIN 5,000 UNIT/1 ML VIAL SC ×2 (08:16→21:13)
[2019-03-29] MEDS: FAMOTIDINE 20 MG TAB PO ×2 (08:17→21:11)
[2019-03-29] MEDS: PREGABALIN 75 MG CAP PO ×3 (08:17→21:11)
[2019-03-29] MEDS: ASPIRIN (EC) 81 MG TAB PO (08:17)
[2019-03-29] MEDS: ATORVASTATIN 40 MG TAB PO (21:11)
[2019-03-29] MEDS: INSULIN GLARGINE [LANTus] (100 UNITS/ML) SYG SC (21:14)
[2019-03-30] MEDS: ACCU-CHEK XX (01:06)
[2019-03-30] MEDS: LEVOTHYROXINE 25 MCG TAB PO (06:05)
[2019-03-30] MEDS: CEFAZOLIN 2 GM/50 ML (PMX) 50 ML IVPB ×3 (06:05→22:19)
[2019-03-30] MEDS: PREGABALIN 75 MG CAP PO ×3 (08:10→20:53)
[2019-03-30] MEDS: ASPIRIN (EC) 81 MG TAB PO (08:10)
[2019-03-30] MEDS: FAMOTIDINE 20 MG TAB PO ×2 (08:10→20:53)
[2019-03-30] MEDS: LOSARTAN 50 MG TAB PO (08:11)
[2019-03-30] MEDS: INSULIN ASPART [NOVOLOG] 3 ML PEN SC ×7 (08:15→20:57)
[2019-03-30] MEDS: HEPARIN 5,000 UNIT/1 ML VIAL SC ×2 (08:16→20:56)
[2019-03-30] MEDS ORDERED: LIDOCAINE 1% (MPF) 5 ML VIAL SC (13:00)
[2019-03-30] MEDS: ATORVASTATIN 40 MG TAB PO (20:53)
[2019-03-30] MEDS: INSULIN GLARGINE [LANTus] (100 UNITS/ML) SYG SC (20:57)
[2019-03-31] MEDS: ACCU-CHEK XX (02:00)
[2019-03-31 05:59] LABS: ADD MAN DIFF? NO
[2019-03-31 06:08] LABS: BASOPHIL # 0.1 10^3/ul (0.0-0.1); EOSINOPHILS # 0.2 10^3/ul (0.0-0.5); EOSINOPHILS % 3.7 % (0.0-7.0); HEMATOCRIT 37.3 % (42.0-52.0); HEMOGLOBIN 12.2 g/dl (14.0-18.0); LYMPHOCYTES # 1.6 10^3/ul (0.8-2.9); LYMPHOCYTES % 27.2 % (15.0-51.0); MEAN CORPUSCULAR HEMOGLOBIN 29.3 pg (29.0-33.0); MEAN CORPUSCULAR HGB CONC 32.7 g/dl (32.0-37.0); MEAN CORPUSCULAR VOLUME 89.4 fl (82.0-101.0); MEAN PLATELET VOLUME 10.9 fl (7.4-10.4); MONOCYTE # 0.7 10^3/ul (0.3-0.9); MONOCYTES % 11.1 % (0.0-11.0); NEUTROPHIL # 3.4 10^3/ul (1.6-7.5); NEUTROPHILS % 56.8 % (39.0-77.0); PLATELET COUNT 297 10^3/UL (140-415); RED BLOOD COUNT 4.17 10^6/ul (4.70-6.10); RED CELL DISTRIBUTION WIDTH 12.8 % (11.5-14.5)
[2019-03-31] MEDS: LEVOTHYROXINE 25 MCG TAB PO (06:08)
[2019-03-31] MEDS: CEFAZOLIN 2 GM/50 ML (PMX) 50 ML IVPB ×2 (06:08→14:38)
[2019-03-31 06:26] LABS: IRON 78 ug/dl (35-150)
[2019-03-31 06:30] LABS: MAGNESIUM 1.9 mg/dl (1.7-2.5)
[2019-03-31 06:30] LABS: ALANINE AMINOTRANSFERASE 19 IU/L (13-69); ALBUMIN 3.5 g/dl (3.3-4.9); ALBUMIN/GLOBULIN RATIO 1.09; ALKALINE PHOSPHATASE 56 IU/L (42-121); ANION GAP 4 (5-13); ASPARTATE AMINO TRANSFERASE 23 IU/L (15-46); BILIRUBIN,INDIRECT 0.3 mg/dl (0-1.1); BILIRUBIN,TOTAL 0.3 mg/dl (0.2-1.3); BLOOD UREA NITROGEN 26 mg/dl (7-20); CALCIUM 9.3 mg/dl (8.4-10.2); CARBON DIOXIDE 30 mmol/L (21-31); CHLORIDE 103 mmol/L (97-110); CREATININE 0.98 mg/dl (0.61-1.24); Estimated GFR > 60 mL/min (>60); GLUCOSE 154 mg/dl (70-220); POTASSIUM 4.5 mmol/L (3.5-5.1); SODIUM 137 mmol/L (135-144); TOTAL PROTEIN 6.7 g/dl (6.1-8.1)
[2019-03-31 06:35] LABS: % IRON SATURATION 29 % SAT (22-52); TOTAL IRON BINDING CAPACITY 271 ug/dl (241-421)
[2019-03-31 07:00] LABS: HEPATITIS B SURFACE ANTIGEN NEGATIVE (NEGATIVE)
[2019-03-31 07:17] LABS: HEPATITIS C VIRAL ANTIBODY NEGATIVE (NEGATIVE)
[2019-03-31] MEDS: INSULIN ASPART [NOVOLOG] 3 ML PEN SC ×4 (08:00→13:33)
[2019-03-31] MEDS: PREGABALIN 75 MG CAP PO ×2 (08:09→13:28)
[2019-03-31] MEDS: ASPIRIN (EC) 81 MG TAB PO (08:09)
[2019-03-31] MEDS: FAMOTIDINE 20 MG TAB PO (08:09)
[2019-03-31] MEDS: LOSARTAN 50 MG TAB PO (08:10)
[2019-03-31] MEDS: HEPARIN 5,000 UNIT/1 ML VIAL SC (08:16)
[2019-03-31 08:36] LABS: ERYTHROCYTE SEDIMENTATION RATE 25 mm/Hr (0-20)
== END 2019-03-31 16:20 | disposition home health service (06) | DRG 623 ==
LOC: E/R 08:33 → 2NE 13:15
PROC: 0JBR0ZZ Excision of Left Foot Subcutaneous Tissue and Fascia, Open Approach (ICD-10-PCS; principal; 2019-03-21 18:00)
PROC: 0HRNXK3 Replacement of Left Foot Skin with Nonautologous Tissue Substitute, Full Thickness, External Approach (ICD-10-PCS; 2019-03-21 18:00)
PROC: 0QBR0ZZ Excision of Left Toe Phalanx, Open Approach (ICD-10-PCS; 2019-03-21 18:00)
PROC: B40D1ZZ Plain Radiography of Aorta and Bilateral Lower Extremity Arteries using Low Osmolar Contrast (ICD-10-PCS; 2019-03-21 18:22)
PROC: 02HV33Z Insertion of Infusion Device into Superior Vena Cava, Percutaneous Approach (ICD-10-PCS; 2019-03-21 18:22)
DX: E11.69 Type 2 diabetes mellitus with other specified complication (principal); M86.9 Osteomyelitis, unspecified; L03.116 Cellulitis of left lower limb; M86.172 Other acute osteomyelitis, left ankle and foot; M86.672 Other chronic osteomyelitis, left ankle and foot; T81.31XA Disruption of external operation (surgical) wound, not elsewhere classified, initial encounter; I96 Gangrene, not elsewhere classified; E11.51 Type 2 diabetes mellitus with diabetic peripheral angiopathy without gangrene; E11.621 Type 2 diabetes mellitus with foot ulcer; L97.529 Non-pressure chronic ulcer of other part of left foot with unspecified severity; I10 Essential (primary) hypertension; I70.245 Atherosclerosis of native arteries of left leg with ulceration of other part of foot; M20.42 Other hammer toe(s) (acquired), left foot; E11.42 Type 2 diabetes mellitus with diabetic polyneuropathy; B95.61 Methicillin susceptible Staphylococcus aureus infection as the cause of diseases classified elsewhere; L08.9 Local infection of the skin and subcutaneous tissue, unspecified; D64.9 Anemia, unspecified
CPT/HCPCS: 36246; 36415; 36569; 71045; 73630-LT; 73718; 75630; 76937; 80048; 80053; 80061; 80202; 82306; 82565; 82652; 82962; 83036; 83540; 83735; 84100; 84436; 84443; 84479; 84520; 85025; 85610; 85651; 85730; 86140; 86803; 87040-91; 87070; 87340; 88304; 88311; 93005; 93306; 93922; 93970; 96374; 96375; 99285-25

== ENCOUNTER 2019-04-12 05:58 | Inpatient (IN) | payer OTHER ==
[2019-04-12] MEDS: THROMBIN 5000 UNIT (RECOTHROM) VIAL TOP
[2019-04-12] MEDS: GELATIN SIZE 100 SPONGE TOP
[2019-04-12 06:53] LABS: ADD MAN DIFF? NO
[2019-04-12 06:58] LABS: WHITE BLOOD COUNT 6.1 10^3/ul (4.8-10.8)
[2019-04-12 06:58] LABS: BASOPHIL # 0.1 10^3/ul (0.0-0.1); BASOPHILS % 0.8 % (0.0-2.0); EOSINOPHILS # 0.3 10^3/ul (0.0-0.5); EOSINOPHILS % 5.4 % (0.0-7.0); HEMATOCRIT 37.9 % (42.0-52.0); HEMOGLOBIN 12.5 g/dl (14.0-18.0); LYMPHOCYTES # 1.7 10^3/ul (0.8-2.9); LYMPHOCYTES % 27.3 % (15.0-51.0); MEAN CORPUSCULAR HEMOGLOBIN 29.6 pg (29.0-33.0); MEAN CORPUSCULAR VOLUME 89.8 fl (82.0-101.0); MEAN PLATELET VOLUME 11.6 fl (7.4-10.4); MONOCYTE # 0.6 10^3/ul (0.3-0.9); MONOCYTES % 9.6 % (0.0-11.0); NEUTROPHIL # 3.5 10^3/ul (1.6-7.5); NEUTROPHILS % 56.7 % (39.0-77.0); PLATELET COUNT 225 10^3/UL (140-415); RED BLOOD COUNT 4.22 10^6/ul (4.70-6.10); RED CELL DISTRIBUTION WIDTH 12.7 % (11.5-14.5)
[2019-04-12 07:15] LABS: INR 0.91; PROTIME 12.4 Sec (11.9-14.9)
[2019-04-12 07:16] LABS: PARTIAL THROMBOPLASTIN TIME 31.4 Sec (23.0-35.0)
[2019-04-12 07:17] LABS: ALANINE AMINOTRANSFERASE 31 IU/L (13-69); ALBUMIN 3.7 g/dl (3.3-4.9); ALBUMIN/GLOBULIN RATIO 1.08; ALKALINE PHOSPHATASE 61 IU/L (42-121); ANION GAP 10 (5-13); ASPARTATE AMINO TRANSFERASE 22 IU/L (15-46); BILIRUBIN,INDIRECT 0.3 mg/dl (0-1.1); BILIRUBIN,TOTAL 0.3 mg/dl (0.2-1.3); CALCIUM 9.7 mg/dl (8.4-10.2); CARBON DIOXIDE 27 mmol/L (21-31); CHLORIDE 102 mmol/L (97-110); CREATININE 0.93 mg/dl (0.61-1.24); Estimated GFR > 60 mL/min (>60); GLUCOSE 122 mg/dl (70-220); POTASSIUM 4.6 mmol/L (3.5-5.1); SODIUM 139 mmol/L (135-144); TOTAL PROTEIN 7.1 g/dl (6.1-8.1)
[2019-04-12 07:19] LABS: BLOOD UREA NITROGEN 23 mg/dl (7-20)
[2019-04-12] MEDS ORDERED: HEPARIN 1000 UNITS/ML 10 ML INJ ×2 (07:23→11:06)
[2019-04-12] MEDS ORDERED: GELATIN SIZE 100 SPONGE (07:23)
[2019-04-12] MEDS ORDERED: THROMBIN 5000 UNIT (RECOTHROM) VIAL (07:23)
[2019-04-12] MEDS: HEPARIN 1000 UNITS/ML 10 ML INJ IRR ×2 (08:00)
[2019-04-12] MEDS ORDERED: MIDAZOLAM 1 MG/ML 2 ML INJ (08:05)
[2019-04-12] MEDS ORDERED: morphine 10 MG INJ (10:48)
[2019-04-12] MEDS ORDERED: SUCCINYLCHOLINE CHLORIDE 100 MG/5 ML SYG IV (12:22)
[2019-04-12] MEDS ORDERED: ROCURONIUM 50 MG INJ (12:22)
[2019-04-12] MEDS ORDERED: CEFAZOLIN 1 GM INJ (12:22)
[2019-04-12] MEDS ORDERED: LIDOCAINE 2% (SDV) 5 ML INJ (12:22)
[2019-04-12] MEDS ORDERED: ETOMIDATE 20 MG INJ (12:22)
[2019-04-12] MEDS ORDERED: NEOSTIGMINE 3 MG/3 ML SYRINGE (12:24)
[2019-04-12] MEDS ORDERED: GLYCOPYRROLATE 0.4 MG INJ (12:24)
[2019-04-12] MEDS ORDERED: ONDANSETRON 4 MG INJ (12:26)
[2019-04-12] MEDS: CLOPIDOGREL 75 MG TAB PO (12:30)
[2019-04-12] MEDS ORDERED: DIPHENHYDRAMINE 50 MG INJ IV (13:00)
[2019-04-12] MEDS ORDERED: morphine 2 MG INJ IV ×2 (13:00)
[2019-04-12] MEDS ORDERED: METOCLOPRAMIDE 10 MG INJ IV (13:00)
[2019-04-12] MEDS ORDERED: LORAZEPAM 2 MG INJ IV (13:00)
[2019-04-12] MEDS ORDERED: FENTAnyl 50 MCG/ML VIAL IV (13:00)
[2019-04-12] MEDS ORDERED: ONDANSETRON 4 MG INJ IV (13:00)
[2019-04-12] MEDS ORDERED: MEPERIDINE 25 MG INJ IV (13:00)
[2019-04-12] MEDS: hydrALAzine 20 MG INJ IV (13:35)
[2019-04-12] MEDS: LABETALOL HCL 20MG INJ IV (13:43)
[2019-04-12] MEDS: SOD CHLORIDE 0.9% 1,000 ML IV (13:49)
[2019-04-12] MEDS: niCARdipine 50 MG in SOD CHLORIDE 0.9% 480 ML IV (14:20)
[2019-04-12] MEDS ORDERED: GLUCAGON 1 MG INJ IM (14:30)
[2019-04-12] MEDS ORDERED: DEXTROSE 50% 50 ML SYRINGE IV ×2 (14:30)
[2019-04-12] MEDS ORDERED: GLUCOSE GEL 15 GRAM TUBE BUCCAL (14:30)
[2019-04-12] MEDS ORDERED: GLUCOSE GEL 15 GRAM TUBE PO ×2 (14:30)
[2019-04-12 14:55] LABS: IRON 87 ug/dl (35-150)
[2019-04-12 15:04] LABS: % IRON SATURATION 28 % SAT (22-52); TOTAL IRON BINDING CAPACITY 311 ug/dl (241-421)
[2019-04-12] MEDS ORDERED: glipiZIDE 5 MG TAB PO (17:30)
[2019-04-12] MEDS: PREGABALIN 75 MG CAP PO ×2 (18:25→20:48)
[2019-04-12] MEDS: INSULIN ASPART [NOVOLOG] 3 ML PEN SC ×2 (18:30→20:45)
[2019-04-12] MEDS: morphine 2 MG INJ IV (18:40)
[2019-04-12] MEDS: ATORVASTATIN 40 MG TAB PO (20:41)
[2019-04-12] MEDS: metFORMIN 500 MG TAB PO (20:41)
[2019-04-13] MEDS: morphine 2 MG INJ IV ×2 (00:15→20:31)
[2019-04-13] MEDS: ONDANSETRON 4 MG INJ IV (00:17)
[2019-04-13] MEDS: ACCU-CHEK XX ×3 (02:00→08:30)
[2019-04-13] MEDS: ZOLPIDEM 5 MG TAB PO ×2 (03:12→23:24)
[2019-04-13] MEDS: INSULIN ASPART [NOVOLOG] 3 ML PEN SC ×7 (03:14→20:42)
[2019-04-13 04:59] LABS: ADD MAN DIFF? NO
[2019-04-13 05:07] LABS: BASOPHILS % 0.5 % (0.0-2.0); EOSINOPHILS % 0.3 % (0.0-7.0); HEMATOCRIT 30.3 % (42.0-52.0); HEMOGLOBIN 9.8 g/dl (14.0-18.0); LYMPHOCYTES # 0.9 10^3/ul (0.8-2.9); LYMPHOCYTES % 13.3 % (15.0-51.0); MEAN CORPUSCULAR HEMOGLOBIN 29.1 pg (29.0-33.0); MEAN CORPUSCULAR HGB CONC 32.3 g/dl (32.0-37.0); MEAN CORPUSCULAR VOLUME 89.9 fl (82.0-101.0); MEAN PLATELET VOLUME 11.6 fl (7.4-10.4); MONOCYTE # 0.7 10^3/ul (0.3-0.9); MONOCYTES % 11.1 % (0.0-11.0); NEUTROPHIL # 4.8 10^3/ul (1.6-7.5); NEUTROPHILS % 74.5 % (39.0-77.0); PLATELET COUNT 200 10^3/UL (140-415); RED BLOOD COUNT 3.37 10^6/ul (4.70-6.10); RED CELL DISTRIBUTION WIDTH 13.1 % (11.5-14.5)
[2019-04-13 05:07] LABS: WHITE BLOOD COUNT 6.5 10^3/ul (4.8-10.8)
[2019-04-13 05:39] LABS: ANION GAP 6 (5-13); BLOOD UREA NITROGEN 17 mg/dl (7-20); CALCIUM 8.4 mg/dl (8.4-10.2); CARBON DIOXIDE 28 mmol/L (21-31); CHLORIDE 101 mmol/L (97-110); CREATININE 0.85 mg/dl (0.61-1.24); Estimated GFR > 60 mL/min (>60); GLUCOSE 212 mg/dl (70-220); MAGNESIUM 1.5 mg/dl (1.7-2.5); PHOSPHORUS 3.3 mg/dl (2.5-4.9); POTASSIUM 4.4 mmol/L (3.5-5.1); SODIUM 135 mmol/L (135-144)
[2019-04-13] MEDS: LEVOTHYROXINE 25 MCG TAB PO (06:22)
[2019-04-13] MEDS ORDERED: ACCU-CHEK XX (06:30)
[2019-04-13] MEDS: MAGNESIUM SULFATE 3 GM in DEXTROSE 5% 100 ML IVPB (08:34)
[2019-04-13] MEDS: CLOPIDOGREL 75 MG TAB PO (09:29)
[2019-04-13] MEDS: ASPIRIN (EC) 81 MG TAB PO (09:30)
[2019-04-13] MEDS: LOSARTAN 50 MG TAB PO (09:30)
[2019-04-13] MEDS: PREGABALIN 75 MG CAP PO ×3 (09:36→20:30)
[2019-04-13] MEDS: metFORMIN 500 MG TAB PO ×3 (12:05→17:46)
[2019-04-13] MEDS: DAKINS 0.0125%(1/40) 473 ML SOLUTION TP (12:05)
[2019-04-13] MEDS ORDERED: PENDING SANTYL ORDER FOR WOUND CARE XX (18:30)
[2019-04-13] MEDS: ATORVASTATIN 40 MG TAB PO (20:30)
[2019-04-13] MEDS: DILTIAZEM 25 MG INJ IV ×2 (22:22→22:56)
[2019-04-13 22:38] LABS: ADD MAN DIFF? NO
[2019-04-13 22:42] LABS: BASOPHILS % 0.4 % (0.0-2.0); EOSINOPHILS # 0.2 10^3/ul (0.0-0.5); EOSINOPHILS % 2.3 % (0.0-7.0); HEMOGLOBIN 10.5 g/dl (14.0-18.0); LYMPHOCYTES # 1.4 10^3/ul (0.8-2.9); LYMPHOCYTES % 20.3 % (15.0-51.0); MEAN CORPUSCULAR HEMOGLOBIN 29.6 pg (29.0-33.0); MEAN CORPUSCULAR HGB CONC 32.8 g/dl (32.0-37.0); MEAN CORPUSCULAR VOLUME 90.1 fl (82.0-101.0); MEAN PLATELET VOLUME 11.6 fl (7.4-10.4); MONOCYTE # 0.8 10^3/ul (0.3-0.9); MONOCYTES % 11.5 % (0.0-11.0); NEUTROPHIL # 4.6 10^3/ul (1.6-7.5); NEUTROPHILS % 65.2 % (39.0-77.0); PLATELET COUNT 201 10^3/UL (140-415); RED BLOOD COUNT 3.55 10^6/ul (4.70-6.10); RED CELL DISTRIBUTION WIDTH 13.1 % (11.5-14.5)
[2019-04-13 22:42] LABS: WHITE BLOOD COUNT 7.1 10^3/ul (4.8-10.8)
[2019-04-13 22:59] LABS: ANION GAP 7 (5-13); BLOOD UREA NITROGEN 15 mg/dl (7-20); CALCIUM 8.9 mg/dl (8.4-10.2); CARBON DIOXIDE 30 mmol/L (21-31); CHLORIDE 100 mmol/L (97-110); CREATININE 0.92 mg/dl (0.61-1.24); Estimated GFR > 60 mL/min (>60); GLUCOSE 186 mg/dl (70-220); MAGNESIUM 1.9 mg/dl (1.7-2.5); POTASSIUM 3.9 mmol/L (3.5-5.1); SODIUM 137 mmol/L (135-144)
[2019-04-13] MEDS: MAGNESIUM SULFATE 2 GM/50 ML 50 ML IVPB (23:14)
[2019-04-13 23:16] LABS: FREE T3 2.97 pg/ml (2.77-5.27); FREE T4 (FREE THYROXINE) 1.63 ng/dl (0.78-2.44)
[2019-04-14] MEDS: morphine 2 MG INJ IV ×4 (00:25→23:39)
[2019-04-14] MEDS: ACCU-CHEK XX (02:00)
[2019-04-14] MEDS: ZOLPIDEM 5 MG TAB PO (03:35)
[2019-04-14] MEDS: METOPROLOL 5 MG INJ IV (05:18)
[2019-04-14] MEDS: LEVOTHYROXINE 25 MCG TAB PO (06:10)
[2019-04-14] MEDS: HYDROCODONE/APAP (5/325) TAB PO (06:18)
[2019-04-14 07:04] LABS: ADD MAN DIFF? NO
[2019-04-14 07:15] LABS: BASOPHILS % 0.4 % (0.0-2.0); EOSINOPHILS # 0.1 10^3/ul (0.0-0.5); EOSINOPHILS % 0.8 % (0.0-7.0); HEMATOCRIT 30.9 % (42.0-52.0); HEMOGLOBIN 10.1 g/dl (14.0-18.0); LYMPHOCYTES # 1.4 10^3/ul (0.8-2.9); LYMPHOCYTES % 18.3 % (15.0-51.0); MEAN CORPUSCULAR HEMOGLOBIN 29.4 pg (29.0-33.0); MEAN CORPUSCULAR HGB CONC 32.7 g/dl (32.0-37.0); MEAN CORPUSCULAR VOLUME 90.1 fl (82.0-101.0); MEAN PLATELET VOLUME 11.5 fl (7.4-10.4); MONOCYTE # 1.1 10^3/ul (0.3-0.9); MONOCYTES % 14.2 % (0.0-11.0); PLATELET COUNT 192 10^3/UL (140-415); RED BLOOD COUNT 3.43 10^6/ul (4.70-6.10)
[2019-04-14 07:15] LABS: WHITE BLOOD COUNT 7.5 10^3/ul (4.8-10.8)
[2019-04-14 07:35] LABS: ANION GAP 6 (5-13); BLOOD UREA NITROGEN 17 mg/dl (7-20); CALCIUM 8.5 mg/dl (8.4-10.2); CARBON DIOXIDE 28 mmol/L (21-31); CHLORIDE 100 mmol/L (97-110); CREATININE 0.94 mg/dl (0.61-1.24); Estimated GFR > 60 mL/min (>60); GLUCOSE 205 mg/dl (70-220); POTASSIUM 4.2 mmol/L (3.5-5.1); SODIUM 134 mmol/L (135-144)
[2019-04-14] MEDS: INSULIN ASPART [NOVOLOG] 3 ML PEN SC ×4 (08:11→20:40)
[2019-04-14] MEDS: PREGABALIN 75 MG CAP PO ×3 (08:24→20:40)
[2019-04-14] MEDS: CLOPIDOGREL 75 MG TAB PO (08:24)
[2019-04-14] MEDS: LOSARTAN 50 MG TAB PO (08:24)
[2019-04-14] MEDS: ASPIRIN (EC) 81 MG TAB PO (08:24)
[2019-04-14] MEDS: DAKINS 0.0125%(1/40) 473 ML SOLUTION TP ×2 (08:30→10:21)
[2019-04-14] MEDS: metFORMIN 500 MG TAB PO ×2 (08:30→17:15)
[2019-04-14 09:19] LABS: CREATINE KINASE 77 IU/L (23-200)
[2019-04-14 09:33] LABS: CK INDEX 0.7; CK-MB 0.51 ng/ml (0.0-2.4); TROPONIN-I < 0.012 ng/ml (0.000-0.120)
[2019-04-14 14:37] LABS: CREATINE KINASE 68 IU/L (23-200)
[2019-04-14 14:50] LABS: CK INDEX 0.6; CK-MB 0.39 ng/ml (0.0-2.4); TROPONIN-I < 0.012 ng/ml (0.000-0.120)
[2019-04-14] MEDS: ATORVASTATIN 40 MG TAB PO (20:40)
[2019-04-14] MEDS: INSULIN GLARGINE [LANTus] (100 UNITS/ML) SYG SC (20:51)
[2019-04-15] MEDS: HYDROCODONE/APAP (5/325) TAB PO (00:38)
[2019-04-15] MEDS: POLYETHYLENE GLYCOL 17 GM PACKET PO ×2 (01:30→11:35)
[2019-04-15] MEDS: ZOLPIDEM 5 MG TAB PO (01:30)
[2019-04-15] MEDS: DOCUSATE SODIUM 100 MG CAP PO ×3 (01:30→21:10)
[2019-04-15] MEDS: ACCU-CHEK XX (01:32)
[2019-04-15 05:51] LABS: ADD MAN DIFF? NO
[2019-04-15 06:04] LABS: WHITE BLOOD COUNT 6.5 10^3/ul (4.8-10.8)
[2019-04-15 06:04] LABS: BASOPHILS % 0.6 % (0.0-2.0); EOSINOPHILS # 0.3 10^3/ul (0.0-0.5); EOSINOPHILS % 4.3 % (0.0-7.0); HEMATOCRIT 30.7 % (42.0-52.0); LYMPHOCYTES # 1.5 10^3/ul (0.8-2.9); LYMPHOCYTES % 23.5 % (15.0-51.0); MEAN CORPUSCULAR HEMOGLOBIN 29.1 pg (29.0-33.0); MEAN CORPUSCULAR HGB CONC 32.6 g/dl (32.0-37.0); MEAN CORPUSCULAR VOLUME 89.2 fl (82.0-101.0); MEAN PLATELET VOLUME 11.3 fl (7.4-10.4); MONOCYTE # 0.8 10^3/ul (0.3-0.9); MONOCYTES % 12.1 % (0.0-11.0); NEUTROPHIL # 3.8 10^3/ul (1.6-7.5); NEUTROPHILS % 59.3 % (39.0-77.0); PLATELET COUNT 187 10^3/UL (140-415); RED BLOOD COUNT 3.44 10^6/ul (4.70-6.10); RED CELL DISTRIBUTION WIDTH 12.9 % (11.5-14.5)
[2019-04-15] MEDS: LEVOTHYROXINE 25 MCG TAB PO (06:09)
[2019-04-15 06:39] LABS: ANION GAP 5 (5-13); BLOOD UREA NITROGEN 19 mg/dl (7-20); CALCIUM 8.6 mg/dl (8.4-10.2); CARBON DIOXIDE 29 mmol/L (21-31); CHLORIDE 101 mmol/L (97-110); CREATININE 0.82 mg/dl (0.61-1.24); Estimated GFR > 60 mL/min (>60); GLUCOSE 114 mg/dl (70-220); MAGNESIUM 1.7 mg/dl (1.7-2.5); PHOSPHORUS 3.7 mg/dl (2.5-4.9); POTASSIUM 4.1 mmol/L (3.5-5.1); SODIUM 135 mmol/L (135-144)
[2019-04-15] MEDS: INSULIN ASPART [NOVOLOG] 3 ML PEN SC ×4 (07:37→21:23)
[2019-04-15] MEDS: CLOPIDOGREL 75 MG TAB PO (08:07)
[2019-04-15] MEDS: metFORMIN 500 MG TAB PO ×2 (08:08→17:21)
[2019-04-15] MEDS: ASPIRIN (EC) 81 MG TAB PO (08:08)
[2019-04-15] MEDS: LOSARTAN 50 MG TAB PO (08:08)
[2019-04-15] MEDS: DAKINS 0.0125%(1/40) 473 ML SOLUTION TP (08:09)
[2019-04-15] MEDS: PREGABALIN 75 MG CAP PO ×3 (08:45→21:16)
[2019-04-15] MEDS: METOPROLOL (XL) 25 MG TAB PO (08:46)
[2019-04-15] MEDS: morphine 2 MG INJ IV (14:34)
[2019-04-15] MEDS: ATORVASTATIN 40 MG TAB PO (21:10)
[2019-04-15] MEDS: APIXABAN 5 MG TABLET PO (21:10)
[2019-04-15] MEDS: INSULIN GLARGINE [LANTus] (100 UNITS/ML) SYG SC (21:23)
[2019-04-16] MEDS: morphine 2 MG INJ IV ×5 (00:23→21:04)
[2019-04-16] MEDS: ACCU-CHEK XX (02:12)
[2019-04-16] MEDS: LEVOTHYROXINE 25 MCG TAB PO (06:26)
[2019-04-16 07:05] LABS: ADD MAN DIFF? NO
[2019-04-16 07:09] LABS: BASOPHILS % 0.4 % (0.0-2.0); EOSINOPHILS # 0.2 10^3/ul (0.0-0.5); EOSINOPHILS % 2.6 % (0.0-7.0); HEMATOCRIT 29.6 % (42.0-52.0); HEMOGLOBIN 9.9 g/dl (14.0-18.0); LYMPHOCYTES # 1.5 10^3/ul (0.8-2.9); LYMPHOCYTES % 21.5 % (15.0-51.0); MEAN CORPUSCULAR HEMOGLOBIN 30.1 pg (29.0-33.0); MEAN CORPUSCULAR HGB CONC 33.4 g/dl (32.0-37.0); MEAN PLATELET VOLUME 11.3 fl (7.4-10.4); MONOCYTE # 0.7 10^3/ul (0.3-0.9); MONOCYTES % 9.9 % (0.0-11.0); NEUTROPHIL # 4.5 10^3/ul (1.6-7.5); NEUTROPHILS % 65.3 % (39.0-77.0); PLATELET COUNT 205 10^3/UL (140-415); RED BLOOD COUNT 3.29 10^6/ul (4.70-6.10); RED CELL DISTRIBUTION WIDTH 12.7 % (11.5-14.5)
[2019-04-16 07:09] LABS: WHITE BLOOD COUNT 6.8 10^3/ul (4.8-10.8)
[2019-04-16 07:34] LABS: ANION GAP 6 (5-13); BLOOD UREA NITROGEN 21 mg/dl (7-20); CARBON DIOXIDE 29 mmol/L (21-31); CHLORIDE 100 mmol/L (97-110); CREATININE 0.87 mg/dl (0.61-1.24); Estimated GFR > 60 mL/min (>60); GLUCOSE 184 mg/dl (70-220); POTASSIUM 4.2 mmol/L (3.5-5.1); SODIUM 135 mmol/L (135-144)
[2019-04-16] MEDS: DOCUSATE SODIUM 100 MG CAP PO ×2 (08:19→21:03)
[2019-04-16] MEDS: LOSARTAN 50 MG TAB PO (08:19)
[2019-04-16] MEDS: METOPROLOL (XL) 25 MG TAB PO (08:19)
[2019-04-16] MEDS: DAKINS 0.0125%(1/40) 473 ML SOLUTION TP (08:20)
[2019-04-16] MEDS: APIXABAN 5 MG TABLET PO ×2 (08:23→21:03)
[2019-04-16] MEDS: CLOPIDOGREL 75 MG TAB PO (08:23)
[2019-04-16] MEDS: INSULIN ASPART [NOVOLOG] 3 ML PEN SC ×4 (08:31→21:00)
[2019-04-16] MEDS: PREGABALIN 75 MG CAP PO ×3 (08:34→21:03)
[2019-04-16] MEDS: metFORMIN 500 MG TAB PO ×2 (08:34→17:09)
[2019-04-16] MEDS: POLYETHYLENE GLYCOL 17 GM PACKET PO (12:37)
[2019-04-16] MEDS: HYDROCODONE/APAP (5/325) TAB PO (13:46)
[2019-04-16] MEDS: CEFAZOLIN 1 GM/50 ML (PMX) 50 ML IVPB ×2 (13:52→21:21)
[2019-04-16] MEDS: ATORVASTATIN 40 MG TAB PO (21:03)
[2019-04-16] MEDS: INSULIN GLARGINE [LANTus] (100 UNITS/ML) SYG SC (21:47)
[2019-04-17] MEDS: HYDROCODONE/APAP (5/325) TAB PO (01:05)
[2019-04-17] MEDS: ACCU-CHEK XX (02:00)
[2019-04-17] MEDS: ZOLPIDEM 5 MG TAB PO ×2 (03:02→22:01)
[2019-04-17] MEDS: morphine 2 MG INJ IV ×4 (05:33→22:01)
[2019-04-17] MEDS: CEFAZOLIN 1 GM/50 ML (PMX) 50 ML IVPB ×3 (05:33→21:11)
[2019-04-17] MEDS: LEVOTHYROXINE 25 MCG TAB PO (05:33)
[2019-04-17 06:47] LABS: ADD MAN DIFF? NO
[2019-04-17 06:49] LABS: WHITE BLOOD COUNT 6.5 10^3/ul (4.8-10.8)
[2019-04-17 06:49] LABS: BASOPHIL # 0.1 10^3/ul (0.0-0.1); BASOPHILS % 0.8 % (0.0-2.0); EOSINOPHILS # 0.4 10^3/ul (0.0-0.5); EOSINOPHILS % 5.5 % (0.0-7.0); HEMATOCRIT 29.8 % (42.0-52.0); HEMOGLOBIN 9.9 g/dl (14.0-18.0); LYMPHOCYTES # 1.6 10^3/ul (0.8-2.9); LYMPHOCYTES % 23.9 % (15.0-51.0); MEAN CORPUSCULAR HEMOGLOBIN 29.4 pg (29.0-33.0); MEAN CORPUSCULAR HGB CONC 33.2 g/dl (32.0-37.0); MEAN CORPUSCULAR VOLUME 88.4 fl (82.0-101.0); MEAN PLATELET VOLUME 10.8 fl (7.4-10.4); MONOCYTE # 0.7 10^3/ul (0.3-0.9); MONOCYTES % 10.4 % (0.0-11.0); NEUTROPHIL # 3.9 10^3/ul (1.6-7.5); NEUTROPHILS % 59.1 % (39.0-77.0); PLATELET COUNT 223 10^3/UL (140-415); RED BLOOD COUNT 3.37 10^6/ul (4.70-6.10); RED CELL DISTRIBUTION WIDTH 12.7 % (11.5-14.5)
[2019-04-17 07:17] LABS: ANION GAP 5 (5-13); BLOOD UREA NITROGEN 22 mg/dl (7-20); CALCIUM 8.9 mg/dl (8.4-10.2); CARBON DIOXIDE 29 mmol/L (21-31); CHLORIDE 100 mmol/L (97-110); Estimated GFR > 60 mL/min (>60); GLUCOSE 160 mg/dl (70-220); MAGNESIUM 1.5 mg/dl (1.7-2.5); POTASSIUM 4.1 mmol/L (3.5-5.1); SODIUM 134 mmol/L (135-144)
[2019-04-17] MEDS: INSULIN ASPART [NOVOLOG] 3 ML PEN SC ×4 (08:12→20:06)
[2019-04-17] MEDS: DOCUSATE SODIUM 100 MG CAP PO ×2 (09:05→20:07)
[2019-04-17] MEDS: CLOPIDOGREL 75 MG TAB PO (09:05)
[2019-04-17] MEDS: APIXABAN 5 MG TABLET PO (09:05)
[2019-04-17] MEDS: LOSARTAN 50 MG TAB PO (09:05)
[2019-04-17] MEDS: METOPROLOL (XL) 25 MG TAB PO (09:06)
[2019-04-17] MEDS: DAKINS 0.0125%(1/40) 473 ML SOLUTION TP (09:06)
[2019-04-17] MEDS: PREGABALIN 75 MG CAP PO ×3 (09:09→20:07)
[2019-04-17] MEDS: metFORMIN 500 MG TAB PO ×2 (09:10→17:02)
[2019-04-17] MEDS: MAGNESIUM SULFATE 2 GM/50 ML 50 ML IVPB (11:00)
[2019-04-17] MEDS: ATORVASTATIN 40 MG TAB PO (20:07)
[2019-04-17] MEDS: INSULIN GLARGINE [LANTus] (100 UNITS/ML) SYG SC (20:33)
[2019-04-18] MEDS: ACCU-CHEK XX (02:00)
[2019-04-18] MEDS: LEVOTHYROXINE 25 MCG TAB PO (06:10)
[2019-04-18] MEDS: CEFAZOLIN 1 GM/50 ML (PMX) 50 ML IVPB ×3 (06:10→21:32)
[2019-04-18 06:49] LABS: ADD MAN DIFF? NO
[2019-04-18 06:53] LABS: WHITE BLOOD COUNT 7.4 10^3/ul (4.8-10.8)
[2019-04-18 06:53] LABS: BASOPHILS % 0.5 % (0.0-2.0); EOSINOPHILS # 0.4 10^3/ul (0.0-0.5); EOSINOPHILS % 5.9 % (0.0-7.0); HEMATOCRIT 30.1 % (42.0-52.0); HEMOGLOBIN 9.9 g/dl (14.0-18.0); LYMPHOCYTES # 1.6 10^3/ul (0.8-2.9); LYMPHOCYTES % 21.2 % (15.0-51.0); MEAN CORPUSCULAR HEMOGLOBIN 29.6 pg (29.0-33.0); MEAN CORPUSCULAR HGB CONC 32.9 g/dl (32.0-37.0); MEAN CORPUSCULAR VOLUME 90.1 fl (82.0-101.0); MEAN PLATELET VOLUME 10.9 fl (7.4-10.4); MONOCYTE # 0.8 10^3/ul (0.3-0.9); MONOCYTES % 10.2 % (0.0-11.0); NEUTROPHIL # 4.6 10^3/ul (1.6-7.5); NEUTROPHILS % 61.9 % (39.0-77.0); PLATELET COUNT 216 10^3/UL (140-415); RED BLOOD COUNT 3.34 10^6/ul (4.70-6.10); RED CELL DISTRIBUTION WIDTH 12.8 % (11.5-14.5)
[2019-04-18 07:30] LABS: ANION GAP 6 (5-13); BLOOD UREA NITROGEN 23 mg/dl (7-20); CARBON DIOXIDE 27 mmol/L (21-31); CHLORIDE 102 mmol/L (97-110); CREATININE 0.85 mg/dl (0.61-1.24); Estimated GFR > 60 mL/min (>60); GLUCOSE 138 mg/dl (70-220); POTASSIUM 4.4 mmol/L (3.5-5.1); SODIUM 135 mmol/L (135-144)
[2019-04-18] MEDS: INSULIN ASPART [NOVOLOG] 3 ML PEN SC ×4 (08:03→20:23)
[2019-04-18] MEDS: PREGABALIN 75 MG CAP PO ×3 (08:14→20:16)
[2019-04-18] MEDS: metFORMIN 500 MG TAB PO ×2 (08:14→17:10)
[2019-04-18] MEDS: CLOPIDOGREL 75 MG TAB PO (08:14)
[2019-04-18] MEDS: LOSARTAN 50 MG TAB PO (08:14)
[2019-04-18] MEDS: DAKINS 0.0125%(1/40) 473 ML SOLUTION TP (08:15)
[2019-04-18] MEDS: DOCUSATE SODIUM 100 MG CAP PO ×2 (08:15→20:17)
[2019-04-18] MEDS: METOPROLOL (XL) 25 MG TAB PO (08:15)
[2019-04-18] MEDS: morphine 2 MG INJ IV ×4 (08:16→21:32)
[2019-04-18] MEDS: ATORVASTATIN 40 MG TAB PO (20:17)
[2019-04-18] MEDS: INSULIN GLARGINE [LANTus] (100 UNITS/ML) SYG SC (20:29)
[2019-04-18] MEDS: ZOLPIDEM 5 MG TAB PO (21:33)
[2019-04-19] MEDS: HYDROCODONE/APAP (5/325) TAB PO ×3 (00:38→20:51)
[2019-04-19] MEDS: ACCU-CHEK XX (02:00)
[2019-04-19] MEDS: LEVOTHYROXINE 25 MCG TAB PO (06:31)
[2019-04-19] MEDS: CEFAZOLIN 1 GM/50 ML (PMX) 50 ML IVPB ×3 (06:31→21:09)
[2019-04-19 07:35] LABS: PHOSPHORUS 3.7 mg/dl (2.5-4.9)
[2019-04-19 07:35] LABS: MAGNESIUM 1.7 mg/dl (1.7-2.5)
[2019-04-19] MEDS: INSULIN ASPART [NOVOLOG] 3 ML PEN SC ×4 (08:12→20:54)
[2019-04-19] MEDS: metFORMIN 500 MG TAB PO ×2 (08:20→18:30)
[2019-04-19] MEDS: CLOPIDOGREL 75 MG TAB PO (08:20)
[2019-04-19] MEDS: DOCUSATE SODIUM 100 MG CAP PO ×2 (08:20→20:50)
[2019-04-19] MEDS: LOSARTAN 50 MG TAB PO (08:21)
[2019-04-19] MEDS: METOPROLOL (XL) 25 MG TAB PO (08:22)
[2019-04-19] MEDS: PREGABALIN 75 MG CAP PO ×3 (09:50→20:49)
[2019-04-19] MEDS: DAKINS 0.0125%(1/40) 473 ML SOLUTION TP (09:51)
[2019-04-19] MEDS: morphine 2 MG INJ IV (16:32)
[2019-04-19] MEDS: APIXABAN 5 MG TABLET PO (20:51)
[2019-04-19] MEDS: ATORVASTATIN 40 MG TAB PO (20:51)
[2019-04-19] MEDS: INSULIN GLARGINE [LANTus] (100 UNITS/ML) SYG SC (21:04)
[2019-04-20] MEDS: ACCU-CHEK XX (02:00)
[2019-04-20] MEDS: LEVOTHYROXINE 25 MCG TAB PO (06:35)
[2019-04-20] MEDS: CEFAZOLIN 1 GM/50 ML (PMX) 50 ML IVPB ×3 (06:35→21:56)
[2019-04-20] MEDS: INSULIN ASPART [NOVOLOG] 3 ML PEN SC ×4 (07:55→20:35)
[2019-04-20] MEDS: CLOPIDOGREL 75 MG TAB PO (08:10)
[2019-04-20] MEDS: metFORMIN 500 MG TAB PO ×2 (08:10→17:57)
[2019-04-20] MEDS: METOPROLOL (XL) 25 MG TAB PO (08:11)
[2019-04-20] MEDS: DOCUSATE SODIUM 100 MG CAP PO ×2 (08:12→20:53)
[2019-04-20] MEDS: DAKINS 0.0125%(1/40) 473 ML SOLUTION TP (08:13)
[2019-04-20] MEDS: APIXABAN 5 MG TABLET PO ×2 (08:13→20:53)
[2019-04-20] MEDS: LOSARTAN 50 MG TAB PO (08:13)
[2019-04-20] MEDS: PREGABALIN 75 MG CAP PO ×3 (08:59→20:53)
[2019-04-20] MEDS: morphine 2 MG INJ IV ×2 (12:16→20:20)
[2019-04-20] MEDS: INSULIN GLARGINE [LANTus] (100 UNITS/ML) SYG SC (20:31)
[2019-04-20] MEDS: ATORVASTATIN 40 MG TAB PO (20:53)
[2019-04-21] MEDS: ACCU-CHEK XX (02:00)
[2019-04-21 06:25] LABS: ADD MAN DIFF? NO
[2019-04-21] MEDS: CEFAZOLIN 1 GM/50 ML (PMX) 50 ML IVPB ×3 (06:31→22:35)
[2019-04-21] MEDS: LEVOTHYROXINE 25 MCG TAB PO (06:32)
[2019-04-21 06:37] LABS: BASOPHILS % 0.5 % (0.0-2.0); EOSINOPHILS # 0.2 10^3/ul (0.0-0.5); EOSINOPHILS % 2.8 % (0.0-7.0); HEMATOCRIT 29.2 % (42.0-52.0); HEMOGLOBIN 9.6 g/dl (14.0-18.0); LYMPHOCYTES # 1.2 10^3/ul (0.8-2.9); LYMPHOCYTES % 16.1 % (15.0-51.0); MEAN CORPUSCULAR HEMOGLOBIN 29.6 pg (29.0-33.0); MEAN CORPUSCULAR HGB CONC 32.9 g/dl (32.0-37.0); MEAN CORPUSCULAR VOLUME 90.1 fl (82.0-101.0); MEAN PLATELET VOLUME 11.1 fl (7.4-10.4); MONOCYTE # 0.7 10^3/ul (0.3-0.9); MONOCYTES % 9.5 % (0.0-11.0); NEUTROPHIL # 5.5 10^3/ul (1.6-7.5); NEUTROPHILS % 70.7 % (39.0-77.0); PLATELET COUNT 261 10^3/UL (140-415); RED BLOOD COUNT 3.24 10^6/ul (4.70-6.10); RED CELL DISTRIBUTION WIDTH 12.8 % (11.5-14.5)
[2019-04-21 06:37] LABS: WHITE BLOOD COUNT 7.7 10^3/ul (4.8-10.8)
[2019-04-21 07:16] LABS: PHOSPHORUS 3.5 mg/dl (2.5-4.9)
[2019-04-21 07:16] LABS: MAGNESIUM 1.6 mg/dl (1.7-2.5)
[2019-04-21 07:21] LABS: ANION GAP 7 (5-13); BLOOD UREA NITROGEN 25 mg/dl (7-20); CALCIUM 8.9 mg/dl (8.4-10.2); CARBON DIOXIDE 26 mmol/L (21-31); CHLORIDE 102 mmol/L (97-110); CREATININE 0.79 mg/dl (0.61-1.24); Estimated GFR > 60 mL/min (>60); GLUCOSE 154 mg/dl (70-220); POTASSIUM 4.4 mmol/L (3.5-5.1); SODIUM 135 mmol/L (135-144)
[2019-04-21] MEDS: APIXABAN 5 MG TABLET PO ×2 (08:39→21:16)
[2019-04-21] MEDS: CLOPIDOGREL 75 MG TAB PO (08:39)
[2019-04-21] MEDS: DOCUSATE SODIUM 100 MG CAP PO ×2 (08:39→21:00)
[2019-04-21] MEDS: PREGABALIN 75 MG CAP PO ×3 (08:39→21:16)
[2019-04-21] MEDS: metFORMIN 500 MG TAB PO ×2 (08:40→17:26)
[2019-04-21] MEDS: INSULIN ASPART [NOVOLOG] 3 ML PEN SC ×4 (08:44→21:00)
[2019-04-21] MEDS: METOPROLOL (XL) 25 MG TAB PO (08:45)
[2019-04-21] MEDS: LOSARTAN 50 MG TAB PO (08:46)
[2019-04-21] MEDS: DAKINS 0.0125%(1/40) 473 ML SOLUTION TP (08:46)
[2019-04-21] MEDS: MAGNESIUM SULFATE 1 GM/D5W 100 ML IVPB (11:59)
[2019-04-21] MEDS: morphine 2 MG INJ IV (13:33)
[2019-04-21] MEDS: INSULIN GLARGINE [LANTus] (100 UNITS/ML) SYG SC (20:54)
[2019-04-21] MEDS: ATORVASTATIN 40 MG TAB PO (21:16)
[2019-04-21] MEDS: LOPERAMIDE 2 MG CAP PO (21:16)
[2019-04-22] MEDS: ACCU-CHEK XX (02:00)
[2019-04-22] MEDS: CEFAZOLIN 1 GM/50 ML (PMX) 50 ML IVPB ×3 (06:20→21:00)
[2019-04-22] MEDS: LEVOTHYROXINE 25 MCG TAB PO (06:20)
[2019-04-22] MEDS: metFORMIN 500 MG TAB PO ×2 (08:27→17:55)
[2019-04-22] MEDS: DOCUSATE SODIUM 100 MG CAP PO ×2 (08:28→20:51)
[2019-04-22] MEDS: CLOPIDOGREL 75 MG TAB PO (08:28)
[2019-04-22] MEDS: LOSARTAN 50 MG TAB PO (08:28)
[2019-04-22] MEDS: METOPROLOL (XL) 25 MG TAB PO (08:28)
[2019-04-22] MEDS: APIXABAN 5 MG TABLET PO ×2 (08:28→20:50)
[2019-04-22] MEDS: INSULIN ASPART [NOVOLOG] 3 ML PEN SC ×4 (08:33→20:58)
[2019-04-22] MEDS: morphine 2 MG INJ IV ×2 (08:35→21:42)
[2019-04-22] MEDS: DAKINS 0.0125%(1/40) 473 ML SOLUTION TP (08:35)
[2019-04-22] MEDS: PREGABALIN 75 MG CAP PO ×3 (08:35→20:50)
[2019-04-22] MEDS: ATORVASTATIN 40 MG TAB PO (20:50)
[2019-04-22] MEDS: INSULIN GLARGINE [LANTus] (100 UNITS/ML) SYG SC (21:10)
[2019-04-23] MEDS: ACCU-CHEK XX (02:00)
[2019-04-23] MEDS: CEFAZOLIN 1 GM/50 ML (PMX) 50 ML IVPB ×2 (05:58→14:57)
[2019-04-23] MEDS: LEVOTHYROXINE 25 MCG TAB PO (06:00)
[2019-04-23] MEDS: INSULIN ASPART [NOVOLOG] 3 ML PEN SC ×3 (07:55→17:57)
[2019-04-23] MEDS: DOCUSATE SODIUM 100 MG CAP PO (08:16)
[2019-04-23] MEDS: PREGABALIN 75 MG CAP PO ×2 (08:16→12:36)
[2019-04-23] MEDS: CLOPIDOGREL 75 MG TAB PO (08:16)
[2019-04-23] MEDS: metFORMIN 500 MG TAB PO ×2 (08:16→17:53)
[2019-04-23] MEDS: APIXABAN 5 MG TABLET PO (08:16)
[2019-04-23] MEDS: METOPROLOL (XL) 25 MG TAB PO (08:17)
[2019-04-23] MEDS: LOSARTAN 50 MG TAB PO (08:17)
[2019-04-23] MEDS: DAKINS 0.0125%(1/40) 473 ML SOLUTION TP (08:17)
[2019-04-23] MEDS: morphine 2 MG INJ IV ×2 (08:38→08:44)
== END 2019-04-23 19:55 | disposition home health service (06) | DRG 253 ==
LOC: REC 05:58 → TEL 04-13 17:28 → ICU 12:46
PROVIDERS: Surgery Vascular Surgery
PROC: 041 Lower Arteries, Bypass (ICD-10-PCS; principal; 2019-04-12 08:00)
PROC: 06BQ4ZZ Excision of Left Saphenous Vein, Percutaneous Endoscopic Approach (ICD-10-PCS; 2019-04-12 08:00)
PROC: 0JBR0ZZ Excision of Left Foot Subcutaneous Tissue and Fascia, Open Approach (ICD-10-PCS; 2019-04-12 08:00)
DX: I70.262 Atherosclerosis of native arteries of extremities with gangrene, left leg (principal); M86.9 Osteomyelitis, unspecified; L97.529 Non-pressure chronic ulcer of other part of left foot with unspecified severity; I48.0 Paroxysmal atrial fibrillation; E11.9 Type 2 diabetes mellitus without complications; E03.9 Hypothyroidism, unspecified; E11.621 Type 2 diabetes mellitus with foot ulcer; E11.69 Type 2 diabetes mellitus with other specified complication; B95.61 Methicillin susceptible Staphylococcus aureus infection as the cause of diseases classified elsewhere; E78.5 Hyperlipidemia, unspecified; D63.8 Anemia in other chronic diseases classified elsewhere; L03.032 Cellulitis of left toe; L84 Corns and callosities
CPT/HCPCS: 80048; 80053; 82550; 82553; 82728; 82962; 83540; 83735; 84100; 84439; 84443; 84481; 84484; 85025; 85610; 85730; 87070; 87081; 93005; 97110; 97116; 97162; 97530